=== PATIENT | female | born 1975 | race African-American/Black ===

== ENCOUNTER 2017-03-31 20:28 | Inpatient (IN) | payer OTHER ==
[~2017-03-31] VITALS: Ht 175.3 cm; Wt 96.5 kg
[~2017-03-31 20:28] MED LIST: CHOL50008 PO; CLON.5 PO; CYMB60CA PO; HUMALOG SQ; LABE200T2 PO; LIPI40TA PO; LISI-593 PO; METH1CHW2 PO; NOVOLOGMXP SQ; PERC5TAB12 PO; PLAV75TA29 PO; POTA10CA PO; TOPA100T11 PO; TRAD5TAB PO
[2017-03-31] MEDS ORDERED: CEFEPIME INJ 2,000 MG in SODIUM CHLORIDE 0.9% INJ 100 ML IV STA (20:38)
[2017-03-31 20:40] VITALS: BP 111/58; PULSE 96; RESP 18; TEMP 98.9; O2SAT 98
[2017-03-31] MEDS ORDERED: LORazepam 2 MG/ML VIAL IV PUSH ONE (20:45)
[2017-03-31] MEDS ORDERED: MORPHINE SULFATE 8 MG/ML INJ IV PUSH ONE (20:45)
[2017-03-31] MEDS ORDERED: SODIUM CHLOR 0.9% 1000 ML INJ 1,000 ML IV SCH ×4 (20:45→22:15)
[2017-03-31] MEDS ORDERED: ACETAMINOPHEN 500 MG CPLT PO ONE (20:45)
--- NOTE | 2017-03-31 21:25 | PD ---
HPI Chief Complaint: Abdominal Pain Time Seen by Provider: 20:30 Travel History International Travel<30 days: No Contact w/Intl Traveler<30days: No Traveled to known affect area: No History of Present Illness HPI This is a 41-year-old female who has a history of a stroke who presents to the emergency department with abdominal discomfort that's been going on for 2 days, described as all over, mild, associated with fever and one episode of vomiting yesterday. They did blood work at her care home and found her to have a white blood cell count and 10% bandemia. They placed a Perez catheter which she didn't have prior to today because they told her she had a urinary tract infection and they transferred her to the hospital. PFSH Past Medical History Blood Disorders: No Heart Rhythm Problems: No Cancer: No Cardiovascular Problems: Yes (HTN) High Cholesterol: Yes Chemotherapy: No Chest Pain: No Congestive Heart Failure: No Cerebrovascular Accident: Yes Diabetes: Yes Patient Takes Glucophage: No Endocrine: Yes Hypertension: Yes Immune Disorder: No Musculoskeletal: No Neurologic: Yes (CVA hx) Psychiatric: No Reproductive: No Respiratory: No Radiation Therapy: No Sleep Apnea: Yes Thyroid Disease: No ?: Not Past Surgical History Cholecystectomy: Yes Other Surgery: Yes (cholecystectomy, dental sx) Social History Alcohol Use: Yes (a drink at lunch) Tobacco Use: No Substance Use: No Allergies-Medications (Allergen,Severity, Reaction): Coded Allergies: No Known Allergies (Unverified , 08/29/16) Reported Meds & Prescriptions Reported Meds & Active Scripts Active Reported Zestril (Lisinopril) 40 Mg Tab 40 Mg PO DAILY Vitamin D3 (Cholecalciferol) 5,000 Unit Tab 5,000 Units PO DAILY Labetalol (Labetalol HCl) 200 Mg Tab 200 Mg PO BID Tradjenta (Linagliptin) 5 Mg Tab 5 Mg PO BID Topamax (Topiramate) 100 Mg Tab 100 Mg PO BID Methylphenidate (Methylphenidate HCl) 5 Mg Chew 5 Mg PO DAILY Potassium Chloride ER (Potassium Chloride) 10 Meq Cap 10 Meq PO DAILY Plavix (Clopidogrel Bisulfate) 75 Mg Tab 75 Mg PO DAILY Percocet (Oxycodone-Acetaminophen) 5-325 mg Tab 1 Tab PO Q4H PRN Lipitor (Atorvastatin Calcium) 40 Mg Tab 40 Mg PO HS Klonopin (Clonazepam) 0.5 Mg Tab 0.5 Mg PO BID Novolog Mix 70-30 Inj (Insulin Aspart Prota 70%/Aspart 30%) 1,000 Unit/10 Ml Vial 15 Units SQ DAILY IN THE PM Novolog Mix 70-30 Inj (Insulin Aspart Prota 70%/Aspart 30%) 1,000 Unit/10 Ml Vial 30 Units SQ DAILY IN THE AM Humalog Inj (Insulin Human Lispro) 1,000 Unit/10 Ml Vial 3-15 Units SQ ACHS IF 0-60=0 UNITS-FOLLOW HYPOGLYCEMIC PROTOCOL, 61-150=0 UNITS,151-200=3 UNITS, 201-250=5 UNITS, 251-300=8 UNITS, 301-350=10 UNITS, 351-400=12 UNITS, 401+=15 UNITS AND CALL MD Angelina NGUYEN (Duloxetine HCl) 60 Mg Capdr 60 Mg PO BID Review of Systems Except as stated in HPI: all other systems reviewed are Neg Physical Exam Narrative GENERAL: Morbidly obese, uncomfortable appearing SKIN: Focused skin assessment warm and dry. HEAD: Atraumatic. Normocephalic. EYES: Pupils equal and round. No injection or drainage. ENT: Moist mucous membranes NECK: Trachea midline. CARDIOVASCULAR: Regular rate and rhythm. No murmur appreciated. RESPIRATORY: Clear to auscultation. Breath sounds equal bilaterally. GASTROINTESTINAL: Abdomen soft, mildly diffusely tender, worse in the epigastrium. MUSCULOSKELETAL: No obvious deformities. NEUROLOGICAL: Awake and alert. No obvious cranial nerve deficits. 3 out of 5 strength in the left upper extremity with 4 out of 5 strength in the left lower extremity. PSYCHIATRIC: Appropriate mood and affect; insight and judgment normal. Data Data Last Documented VS Vital Signs Date Time Temp Pulse Resp B/P Pulse Ox O2 Delivery O2 Flow Rate FiO2 03/31/17 22:50 85 22 107/55 99 Room Air 03/31/17 20:40 98.9 Orders Complete Blood Count With Diff (03/31/17 20:38) Comprehensive Metabolic Panel (03/31/17 20:38) Lactic Acid Sepsis Protocol (03/31/17 20:38) Urinalysis - C+S If Indicated (03/31/17 20:38) Blood Culture (03/31/17 20:38) Chest, Single Ap (03/31/17 20:38) Blood Glucose (03/31/17 20:38) Ecg Monitoring (03/31/17 20:38) Iv Access Insert/Monitor (03/31/17 20:38) Oximetry (03/31/17 20:38) Oxygen Administration (03/31/17 20:38) Cefepime Inj (Maxipime Inj) (03/31/17 20:38) Sodium Chlor 0.9% 1000 Ml Inj (Ns 1000 M (03/31/17 20:45) Sodium Chlor 0.9% 1000 Ml Inj (Ns 1000 M (03/31/17 20:45) Acetaminophen (Tylenol) (03/31/17 20:45) Morphine Inj (Morphine Inj) (03/31/17 20:45) Lorazepam Inj (Ativan Inj) (03/31/17 20:45) Sodium Chlor 0.9% 1000 Ml Inj (Ns 1000 M (03/31/17 22:15) Sodium Chlor 0.9% 1000 Ml Inj (Ns 1000 M (03/31/17 22:15) Vancomycin Inj (Vancomycin Inj) (03/31/17 22:15) Urine Culture (03/31/17 21:05) Ct Abd/Pel W/O Iv Contrast (03/31/17 ) Sodium Chlorid 0.9% 500 Ml Inj (Ns 500 M (03/31/17 22:45) Admit Order (Ed Use Only) (03/31/17 23:09) Admit To Inpatient (03/31/17 ) Vital Signs (Adult) Q4H (03/31/17 23:09) Activity Oob With Assistance (03/31/17 23:09) Pullman Car Clerk / Telemetry .CONTINUOUS (03/31/17 23:09) Diet Heart Healthy (04/01/17 Breakfast) Sodium Chloride 0.9% Flush (Ns Flush) (03/31/17 23:15) Sodium Chloride 0.9% Flush (Ns Flush) (04/01/17 09:00) Basic Metabolic Panel (Bmp) (04/01/17 06:00) Complete Blood Count With Diff (04/01/17 06:00) Case Management Consult (03/31/17 23:09) Naloxone Inj (Narcan Inj) (03/31/17 23:15) Inpatient Certification (03/31/17 ) Labs Laboratory Tests Test 03/31/17 21:05 White Blood Count 36.4 TH/MM3 Red Blood Count 3.92 MIL/MM3 Hemoglobin 10.2 GM/DL Hematocrit 31.1 % Mean Corpuscular Volume 79.4 FL Mean Corpuscular Hemoglobin 26.0 PG Mean Corpuscular Hemoglobin 32.8 % Concent Red Cell Distribution Width 16.3 % Platelet Count 393 TH/MM3 Mean Platelet Volume 9.0 FL Neutrophils (%) (Auto) 89.0 % Lymphocytes (%) (Auto) 5.4 % Monocytes (%) (Auto) 4.7 % Eosinophils (%) (Auto) 0.5 % Basophils (%) (Auto) 0.4 % Neutrophils # (Auto) 32.3 TH/MM3 Lymphocytes # (Auto) 2.0 TH/MM3 Monocytes # (Auto) 1.7 TH/MM3 Eosinophils # (Auto) 0.2 TH/MM3 Basophils # (Auto) 0.2 TH/MM3 CBC Comment AUTO DIFF Differential Total Cells 100 Counted Neutrophils % (Manual) 89 % Band Neutrophils % 6 % Lymphocytes % 3 % Monocytes % 2 % Neutrophils # (Manual) 34.6 TH/MM3 Differential Comment FINAL DIFF MANUAL Platelet Estimate NORMAL Platelet Morphology Comment NORMAL Red Cell Morphology Comment NORMAL Urine Color YELLOW Urine Turbidity HAZY Urine pH 5.5 Urine Specific [place] 1.017 Urine Protein 100 mg/dL Urine Glucose (UA) NEG mg/dL Urine Ketones NEG mg/dL Urine Occult Blood SMALL Urine Nitrite NEG Urine Bilirubin NEG Urine Urobilinogen LESS THAN 2.0 MG/DL Urine Leukocyte Esterase LARGE Urine RBC 5 /hpf Urine WBC 97 /hpf Urine Squamous Epithelial 1 /hpf Cells Urine Bacteria MANY /hpf Urine Mucus FEW /lpf Microscopic Urinalysis Comment CATH-CULTURE IND Sodium Level 135 MEQ/L Potassium Level 3.4 MEQ/L Chloride Level 103 MEQ/L Carbon Dioxide Level 21.7 MEQ/L Anion Gap 10 MEQ/L Blood Urea Nitrogen 26 MG/DL Creatinine 1.77 MG/DL Estimat Glomerular Filtration 38 ML/MIN Rate Random Glucose 153 MG/DL Lactic Acid Level 1.4 mmol/L Calcium Level 8.8 MG/DL Total Bilirubin 0.5 MG/DL Aspartate Amino Transf 8 U/L (AST/SGOT) Alanine Aminotransferase 15 U/L (ALT/SGPT) Alkaline Phosphatase 112 U/L Total Protein 7.6 GM/DL Albumin 2.3 GM/DL [facility] Medical Decision Making Medical Screen Exam Complete: Yes Emergency Medical Condition: Yes Interpretation(s) Afebrile, mild tachycardia, hypotensive Leukocytosis of 36 89% neutrophils Creatinine is 1.7 Lactic acid is 1.4 Urinalysis: Urinary tract infection Differential Diagnosis Urinary tract infection, cholecystitis, appendicitis, diverticulitis, colitis Narrative Course This is a 41-year-old female who has a history of a stroke who presents to the emergency department with fever from her care home. She had blood work drawn there which demonstrated a white blood cell count in the 30s and she had a 10% bandemia. Here in the emergency department she is placed on a monitor and an IV was established. She is found have a low blood pressure with a map between 60-65. She was given 4 L of IV fluid as she is 150 kg. She was given vancomycin and cefepime. Labs here confirm a leukocytosis, urinary tract infection and acute kidney injury. Her blood pressure was on the low side with amount between 65 and 70. We agreed to admit the patient to the intensive care unit for close monitoring. CT was also done which demonstrates a small ureteral stone with some hydronephrosis. Critical Care Narrative Aggregate critical care time was 35 minutes. Time to perform other separately billable procedures was not included in the critical care time. My time did not include minutes spent treating any other patients simultaneously or on activities that did not directly contribute to the patient's treatment. The services I provided to this patient were to treat and/or prevent clinically significant deterioration that could result in: Disability, I provided critical care services requiring my management, as noted below: Chart data review, documentation time, medication orders and management, vital sign assessments/reviewing monitor data, ordering and reviewing lab tests, ordering and interpreting/reviewing x-rays and diagnostic studies, care of the patient and discussion of the patient with the admitting physicians. Physician Communication Physician Communication Discussed with Dr. Chan Diagnosis Primary Impression: Severe sepsis Admitting Information Admitting Physician Requests: it Cary Mchugh MD Mar 31, 2017 21:24
[2017-03-31 21:42] LABS: AUTOMATED NEUTROPHIL # 32.3 TH/MM3 (1.8-7.7); BASOPHIL # 0.2 TH/MM3 (0-0.2); BASOPHIL % 0.4 % (0.0-2.0); EOSINOPHIL # 0.2 TH/MM3 (0-0.4); EOSINOPHIL % 0.5 % (0.0-4.0); HEMATOCRIT 31.1 % (35.0-46.0); LYMPH % 5.4 % (9.0-44.0); MEAN CELL VOLUME 79.4 FL (80.0-100.0); MEAN CORPUSCULAR HGB CONC 32.8 % (32.0-36.0); MONO % 4.7 % (0.0-8.0); PLATELET COUNT 393 TH/MM3 (150-450); RED BLOOD COUNT 3.92 MIL/MM3 (4.00-5.30); RED CELL DISTRIBUTION WIDTH 16.3 % (11.6-17.2); WHITE BLOOD COUNT 36.4 TH/MM3 (4.0-11.0)
[2017-03-31 21:44] LABS: HEMO FLAGS AUTO DIFF
--- NOTE | 2017-03-31 21:50 | RADRPT ---
EXAM DATE/TIME: 03/31/2017 21:19 [facility] COMPARISON: CHEST SINGLE AP, August 29, 2016, 17:05. INDICATIONS : Patient is short of breath and has had a fever for three days. MEDICAL HISTORY : Diabetes mellitus type II. Hypertension SURGICAL HISTORY : None. ENCOUNTER: Initial ACUITY: 1 day PAIN SCORE: 0/10 LOCATION: Bilateral chest FINDINGS: The lungs are clear without infiltrate, nodule, or mass. There is no appreciable pleural effusion fo r technique. Heart and mediastinum are unremarkable. CONCLUSION: No acute cardiopulmonary disease. Irene Nguyen MD on March 31, 2017 at 21:48 Board Certified Radiologist. This report was verified electronically.
[2017-03-31 22:02] LABS: ALT (GPT) 15 U/L (10-53); ANION GAP 10 MEQ/L (5-15); AST (GOT) 8 U/L (15-37); BICARBONATE 21.7 MEQ/L (21.0-32.0); BLOOD UREA NITROGEN 26 MG/DL (7-18); CHLORIDE 103 MEQ/L (98-107); GLOMERULAR FILTRATION RATE 38 ML/MIN (>89); POTASSIUM 3.4 MEQ/L (3.5-5.1); SODIUM (NA) 135 MEQ/L (136-145)
[2017-03-31 22:05] LABS: ALKALINE PHOSPHATASE 112 U/L (45-117); TOTAL BILIRUBIN ADULT 0.5 MG/DL (0.2-1.0)
[2017-03-31 22:10] VITALS: BP 87/56; PULSE 73; RESP 18; O2SAT 97
[2017-03-31] MEDS ORDERED: VANCOMYCIN INJ 1,500 MG in SODIUM CHLORID 0.9% 500 ML INJ 500 ML IV ONE (22:15)
[2017-03-31 22:19] LABS: BACTERIA, URINE MANY /hpf; BLOOD, URINE SMALL (NEG); GLUCOSE,URINE NEG (NEG); KETONE, URINE NEG (NEG); MUCUS URINE FEW /lpf (OCC); NITRITE,URINE NEG (NEG); PH, URINE 5.5 (5.0-8.5); SQUAMOUS EPITHELIAL CELL URINE 1 /hpf (0-5); URINE COLOR YELLOW (YELLW/STRAW)
[2017-03-31 22:21] LABS: COMMENT (UR) CATH-CULTURE IND; CULTURE IF INDICATED CATH CULTURE IND
[2017-03-31 22:25] LABS: BANDS 6 % (0-6); NEUTROPHIL # MANUAL DIFF 34.6 TH/MM3 (1.8-7.7); PLATELET ESTIMATE SMEAR NORMAL (NORMAL); PLATELET MORPHOLOGY NORMAL (NORMAL); POLYS (SEG NEUTROPHILS) 89 % (16-70); SCAN/DIFF FINAL DIFF MANUAL; WBC DIFF SAMPLE 100
[2017-03-31 22:30] VITALS: BP 89/62; PULSE 82; RESP 22; O2SAT 98
[2017-03-31] MEDS ORDERED: SODIUM CHLORID 0.9% 500 ML INJ 500 ML IV ONE (22:45)
[2017-03-31 22:50] VITALS: BP 107/55; PULSE 85; RESP 22; O2SAT 99
[2017-03-31] MEDS ORDERED: Vancomycin Consult Pharmacy 1 EA OTHER SCH (23:15)
[2017-03-31] MEDS ORDERED: NALOXONE HCL 0.4 MG/ML AMP IV PRN (23:15)
[2017-03-31] MEDS ORDERED: SODIUM CHLORIDE 0.9% FLUSH 10 ML FLUSH IV FLUSH PRN (23:15)
[2017-03-31 23:36] VITALS: BP 117/57; PULSE 89; RESP 25; O2SAT 98
[2017-04-01] VITALS (29 sets, daily range): BP systolic 125–174; BP diastolic 60–104; PULSE 90–104; RESP 19–31; TEMP 97.6–99.4; O2SAT 95–100
--- NOTE | 2017-04-01 00:08 | RADRPT ---
EXAM DATE/TIME: 03/31/2017 23:48 [facility] COMPARISON: No previous studies available for comparison. INDICATIONS : Diffuse abdominal pain. ORAL CONTRAST: No oral contrast ingested. RADIATION DOSE: 26.39 CTDIvol (mGy) ; Patient body habitus MEDICAL HISTORY : Hypertension. Diabetes. SURGICAL HISTORY : Cholecystectomy. ENCOUNTER: Initial ACUITY: 2 days PAIN SCALE: 6/10 LOCATION: All quadrants. TECHNIQUE: Volumetric scanning of the abdomen and pelvis was performed. Using automated exposure control and ad justment of the mA and/or kV according to patient size, radiation dose was kept as low as reasonably achievable to obtain optimal diagnostic quality images. DICOM format image data is available electro nically for review and comparison. FINDINGS: Cholecystectomy clips are noted. Liver, spleen, pancreas, adrenal glands are unremarkable. Left upper pole nonobstructing calculus measuring 7.7 mm. Right midpole nonobstructing renal calculus measuring 3.8 mm. Right upper pole renal calculus measuring 4 mm and an adjacent 4 mm calculus. There is no ev idence of obstructing renal calculus however there is mild hydronephrosis bilaterally and mild hydrou reter. Perez catheter is noted within the urinary bladder which is decompressed. The within the dista l left ureter a 3.8 mm calculus is present. On the right, there is no evidence for ureteral calculus. A fibroid uterus is noted with a globular configuration. The ovaries are not clearly visualized. The re are is an increased number of subcentimeter nodes in the retroperitoneum, and there is mild perine phric stranding identified. There is no evidence of aneurysm. Appendix is normal. The lung bases are clear. Osseous structures are intact. CONCLUSION: 1. Mild hydronephrosis and hydroureter bilaterally with a left distal ureteral stone present. There i s mild perinephric stranding. 2. Prominent globular configuration of the uterus with multiple calcifications consistent with a fibr oid uterus. Mickey Harris MD on April 01, 2017 at 0:02 Board Certified Radiologist. This report was verified electronically.
--- NOTE | 2017-04-01 00:14 | HHI.HP ---
HPI Service [facility] Phys[facility] Esteban Tesfaye MD Admission Diagnosis severe sepsis Diagnoses: Travel History International Travel<30 Days: No Contact w/Intl Traveler <30 Da: No Traveled to Known Affected Are: No History of Present Illness History from patient, ER physician communication, and review of medical records , and [facility] notes. Patient reported that she was sent from the [facility] because she was not able to eat. She reports she was having trouble eating for the past 2 or 3 days because she was having loss of appetite. Also reports of associated nausea. Reports she vomited about once a day for the past 2-3 days. Denies any black color or red color vomit. Also reports of diffuse abdominal pain. States she was having diarrhea about once a day for the past 2-3 days as well. No black or red color diarrhea. Reports of urinary burning, pain on urination, frequent urination. She states she is bedbound at the [facility]. She however does not have a Perez catheter chronically according to her. She states that the catheter was placed today just to collect sample at the [facility]. She denies having had any bedsores as well. However we were unable to check her skin integrity in emergency room so far because of her body habitus and not able to roll her over on the bed. Patient denies being on any antibiotics recently. Her last hospitalization was in August 2016 at our facility. Stated she did not go to any other hospitals. Apart from the above, patient denies any recent chest pain/palpitations/ shortness of breath/focal weakness which is new. Denies any hematemesis/hematochezia/melena/hematuria. The emergency room, patient was noted to be quite hypotensive upon initial arrival. She was given 4 L total fluids for resuscitation. At present, her blood pressure is 126/70. Heart rate around 90. She was also given vancomycin, cefepime in ER Review of Systems Except as stated in HPI: all other systems reviewed are Neg Past Family Social History Past Medical History htn dm sleep apnea cva x2 seizures morbid obesity Past Surgical History cholecystectomy Reported Medications Medications list from the [facility] reviewed Allergies: Coded Allergies: No Known Allergies (Unverified , 08/29/16) Family History Reports her father had colon cancer and from it. First diagnosis was at the age of 56. Social History Denies smoking/alcohol abuse/drug abuse. senior care patient, morbidly obese, bed bound due to prior CVA. Physical Exam Vital Signs Vital Signs Date Time Temp Pulse Resp B/P Pulse Ox O2 Delivery O2 Flow Rate FiO2 03/31/17 23:36 89 25 117/57 98 Room Air 03/31/17 22:50 85 22 107/55 99 Room Air 03/31/17 22:30 82 22 89/62 98 Room Air 03/31/17 22:10 73 18 87/56 97 Room Air 03/31/17 20:44 17 03/31/17 20:40 98.9 96 18 111/58 98 Physical Exam GENERAL: This is a well-nourished, well-developed patient, in no apparent distress. Morbid obesity. Flat affect. SKIN: No rashes, ecchymoses or lesions. Cool and dry. HEAD: Atraumatic. Normocephalic. No temporal or scalp tenderness. EYES: No scleral icterus. No injection or drainage. ENT: Nose without bleeding, purulent drainage or septal hematoma. Airway patent. NECK: Trachea midline. No JVD CARDIOVASCULAR: Regular rate and rhythm without murmurs, gallops, or rubs. RESPIRATORY: Decreased air entry bilaterally. Poor exam due to body habitus GASTROINTESTINAL: Abdomen soft, non-tender, nondistended. . No guarding. MUSCULOSKELETAL: Extremities without clubbing, cyanosis. No calf tenderness NEUROLOGICAL: Awake and alert. upper extremity 5 out of 5 bilaterally. Inability to move lower extremities due to body habitus and prior CVA.. Normal speech. Laboratory Laboratory Tests Test 03/31/17 21:05 White Blood Count 36.4 Red Blood Count 3.92 Hemoglobin 10.2 Hematocrit 31.1 Mean Corpuscular Volume 79.4 Mean Corpuscular Hemoglobin 26.0 Mean Corpuscular Hemoglobin 32.8 Concent Red Cell Distribution Width 16.3 Platelet Count 393 Mean Platelet Volume 9.0 Neutrophils (%) (Auto) 89.0 Lymphocytes (%) (Auto) 5.4 Monocytes (%) (Auto) 4.7 Eosinophils (%) (Auto) 0.5 Basophils (%) (Auto) 0.4 Neutrophils # (Auto) 32.3 Lymphocytes # (Auto) 2.0 Monocytes # (Auto) 1.7 Eosinophils # (Auto) 0.2 Basophils # (Auto) 0.2 CBC Comment AUTO DIFF Differential Total Cells 100 Counted Neutrophils % (Manual) 89 Band Neutrophils % 6 Lymphocytes % 3 Monocytes % 2 Neutrophils # (Manual) 34.6 Differential Comment FINAL DIFF MANUAL Platelet Estimate NORMAL Platelet Morphology Comment NORMAL Red Cell Morphology Comment NORMAL Urine Color YELLOW Urine Turbidity HAZY Urine pH 5.5 Urine Specific [place] 1.017 Urine Protein 100 Urine Glucose (UA) NEG Urine Ketones NEG Urine Occult Blood SMALL Urine Nitrite NEG Urine Bilirubin NEG Urine Urobilinogen LESS THAN 2.0 Urine Leukocyte Esterase LARGE Urine RBC 5 Urine WBC 97 Urine Squamous Epithelial 1 Cells Urine Bacteria MANY Urine Mucus FEW Microscopic Urinalysis Comment CATH-CULTURE IND Sodium Level 135 Potassium Level 3.4 Chloride Level 103 Carbon Dioxide Level 21.7 Anion Gap 10 Blood Urea Nitrogen 26 Creatinine 1.77 Estimat Glomerular Filtration 38 Rate Random Glucose 153 Lactic Acid Level 1.4 Calcium Level 8.8 Total Bilirubin 0.5 Aspartate Amino Transf 8 (AST/SGOT) Alanine Aminotransferase 15 (ALT/SGPT) Alkaline Phosphatase 112 Total Protein 7.6 Albumin 2.3 Date/Time Procedure Status Source Growth 03/31/17 21:05 Urine Culture Received Urine Catheterized Urine Pending 03/31/17 21:05 Aerobic Blood Culture Received Blood Peripheral Pending 03/31/17 21:05 Anaerobic Blood Culture Received Blood Peripheral Pending Result Diagram: 03/31/17210403/31/172104 Imaging Last 48 hours Impressions Chest X-Ray 03/31/172037 Signed Impressions: Service Date/Time: March 21:19 - CONCLUSION: No acute cardiopulmonary disease. Irene Nguyen MD Abdomen/Pelvis CT 03/31/17 0000 Signed Impressions: Service Date/Time: March 23:48 - CONCLUSION: 1. Mild hydronephrosis and hydroureter bilaterally with a left distal ureteral stone present. There is mild perinephric stranding. 2. Prominent globular configuration of the uterus with multiple calcifications consistent with a fibroid uterus. Mickey Harris MD Assessment and Plan Assessment and Plan Impression: Severe sepsissource likely UTI. Nausea/vomiting/diarrheaper patient's. However all new once a day episodes. CT abdomen and pelvis personally reviewed. No evidence of cholelithiasis/ pancreatitis/diverticulitis. Mild bilateral hydronephrosis with hydroureter and left distal ureteral stone. Leukocytosis with left shift Acute renal failure Hypokalemia Hypertension Diabetes Obstructive sleep apnea History of CVA 2 Seizure disorder Morbid obesity Bedbound status Plan: Aggressive fluid resuscitation. Patient received 4 L normal saline bolus in ER. At present, Blood pressure is stable. Not tachycardic. We'll continue to monitor. We'll dose vancomycin per creatinine clearance and levels. Cefepime 2 g IV every 12 hours. Adjust per creatinine clearance. Add Cipro 400 mg IV every 12 hours. We'll follow culture results. However, given that her leukocytosis is quite significant at 36,000, and that she is a [facility] patient, with complaint of nausea/vomiting/diarrhea, question whether she has C. difficile colitis. We'll send stool for C. difficile once patient makes bowel movements. Also will check for decubitus ulcers. We were unable to see so in ER because of patient's morbid obesity and stretchers status. We'll check once patient arrives ICU. Please note that patient has a Perez catheter that was placed at [facility] on March 31, 2017. Have written an order to discontinue Perez catheter by April 01, 2017 a.m. IV hydration with normal saline at 84 cc per hour. We'll follow renal function indices. replace kcl [id number] po one dose now Orders have been written to obtain med reconciliation. Would continue home medications once this is done. DVT prophylaxison heparin. GI prophylaxison pantoprazole. Discussed Condition With patient.ER MD, nursing staff Physician Certification 2 Midnight Certification Type: Admission for Inpatient Services Order for Inpatient Services The services are ordered in accordance with Medicare regulations or non- Medicare payer requirements, as applicable. In the case of services not specified as inpatient-only, they are appropriately provided as inpatient services in accordance with the 2-midnight benchmark. Estimated LOS (days): 3 days is the estimated time the patient will need to remain in the hospital, assuming treatment plan goals are met and no additional complications. Post-Hospital Plan: [facility] Iris Chan MD Apr 01, 2017 00:14
[2017-04-01] MEDS ORDERED: VANCOMYCIN 1,000 MG/NS 250 ML IV ONE ×2 (01:00)
[2017-04-01] MEDS ORDERED: CHLORHEXIDINE GLUCONATE 2 % 1 PACK (2 CLOTHS) TOP PRN (01:00)
[2017-04-01] MEDS ORDERED: GLUCAGON 1 MG/ML VIAL OTHER PRN (01:00)
[2017-04-01] MEDS ORDERED: MISCELLANEOUS NURSING INFORMATION XX SCH (01:00)
[2017-04-01] MEDS ORDERED: DEXTROSE 50% IN WATER 50 ML VIAL(D50) IV PRN (01:00)
[2017-04-01] MEDS ORDERED: POTASSIUM CHLORIDE 25 MEQ EFFERVESCENT TAB PO ONE (01:15)
[2017-04-01] MEDS: CIPROFLOXACIN 400 MG PREMIX 200 ML IV SCH ×2 (01:35→12:33)
[2017-04-01] MEDS: SODIUM CHLOR 0.9% 1000 ML INJ 1,000 ML IV SCH ×3 (01:37→22:02)
[2017-04-01] MEDS: CHLORHEXIDINE GLUCONATE 2 % 1 PACK (2 CLOTHS) TOP SCH ×2 (01:38→22:02)
[2017-04-01 05:28] LABS: HEMO FLAGS AUTO DIFF; MEAN CELL VOLUME 80.2 FL (80.0-100.0); MEAN CORPUSCULAR HEMOGLOBIN 24.9 PG (27.0-34.0); PLATELET COUNT 371 TH/MM3 (150-450); RED BLOOD COUNT 3.86 MIL/MM3 (4.00-5.30); RED CELL DISTRIBUTION WIDTH 17.1 % (11.6-17.2)
[2017-04-01 05:49] LABS: BICARBONATE 17.8 MEQ/L (21.0-32.0); POTASSIUM 3.5 MEQ/L (3.5-5.1)
[2017-04-01 06:35] LABS: BANDS 1 % (0-6); NEUTROPHIL # MANUAL DIFF 28.5 TH/MM3 (1.8-7.7); POLYS (SEG NEUTROPHILS) 91 % (16-70); WBC DIFF SAMPLE 100
[2017-04-01 06:38] LABS: BURR CELLS 1+ (NORMAL); HYPERSEGMENTED POLYS 1+ (NORMAL); PLATELET ESTIMATE SMEAR NORMAL (NORMAL); PLATELET MORPHOLOGY NORMAL (NORMAL)
[2017-04-01 06:40] LABS: SCAN/DIFF FINAL DIFF MANUAL
[2017-04-01] MEDS: HEPARIN SODIUM - SQ 10,000 UNITS/ML VIAL SQ SCH ×3 (06:57→22:00)
[2017-04-01] MEDS: INSULIN ASPART SUPPLEMENTAL SCALE SQ SCH ×4 (06:57→21:00)
[2017-04-01] MEDS: PANTOPRAZOLE SOD 40 MG DELAYED RELEASE TAB PO SCH (08:59)
[2017-04-01] MEDS: SODIUM CHLORIDE 0.9% FLUSH 10 ML FLUSH IV FLUSH SCH ×2 (09:00→21:58)
[2017-04-01] MEDS ORDERED: CEFEPIME INJ 2,000 MG in SODIUM CHLORIDE 0.9% INJ 100 ML IV SCH (09:00)
--- NOTE | 2017-04-01 11:14 | HHI.PR ---
Subjective Remarks Follow-up for sepsis No overnight events, no fever, blood pressure in the 120s stable. Probably hypotensive because of rhonchi and of cough which patient adjusts herself. Patient verbalized that she is depressed, feels sad, sometimes breaks into tears. Patient complains of right lower quadrant pain, vague description, nonradiating. Objective Vitals Vital Signs Date Time Temp Pulse Resp B/P Pulse Ox O2 Delivery O2 Flow Rate FiO2 04/01/17 06:00 90 04/01/17 04:00 92 04/01/17 04:00 98.7 94 28 128/78 100 04/01/17 02:00 92 04/01/17 00:55 97.6 92 24 125/86 100 04/01/17 00:27 90 22 126/60 95 Room Air 03/31/17 23:36 89 25 117/57 98 Room Air 03/31/17 22:50 85 22 107/55 99 Room Air 03/31/17 22:30 82 22 89/62 98 Room Air 03/31/17 22:10 73 18 87/56 97 Room Air 03/31/17 20:44 17 03/31/17 20:40 98.9 96 18 111/58 98 I/O 03/31/17 03/31/17 03/31/17 04/01/17 04/01/17 04/01/17 07:00 15:00 23:00 07:00 15:00 23:00 Intake Total 1295 ml Output Total 1750 ml Balance -455 ml Intake Oral 240 ml IV Total 1055 ml Output Urine Total 1750 ml Stool Total 0 ml Result Diagram: 04/01/1740104/01/17401 Imaging Last Impressions Chest X-Ray 03/31/172037 Signed Impressions: Service Date/Time: March 21:19 - CONCLUSION: No acute cardiopulmonary disease. Irene Nguyen MD Abdomen/Pelvis CT 03/31/17 0000 Signed Impressions: Service Date/Time: March 23:48 - CONCLUSION: 1. Mild hydronephrosis and hydroureter bilaterally with a left distal ureteral stone present. There is mild perinephric stranding. 2. Prominent globular configuration of the uterus with multiple calcifications consistent with a fibroid uterus. Mickey Harris MD Objective Remarks GENERAL: Not in distress. Morbid obesity. Flat affect. SKIN: No rashes, ecchymoses or lesions. Cool and dry. NECK: Trachea midline. No JVD CARDIOVASCULAR: Regular rate and rhythm without murmurs, gallops, or rubs. RESPIRATORY: Decreased air entry bilaterally. Poor exam due to body habitus GASTROINTESTINAL: Abdomen soft, nontender at all, nondistended. . No guarding. MUSCULOSKELETAL: Extremities without clubbing, cyanosis. No calf tenderness NEUROLOGICAL: Awake and alert, oriented 3. Positive for generalized weakness especially in the left but patient seems to be not giving any effort A/P Assessment and Plan Severe sepsis secondary to pyelonephritis -Urine culture pending, stop vancomycin, start ciprofloxacin, await urine culture. Hypotension is better, continue IVF. CT scan showed perinephric standing. There is also ureteral stone, consult urology. Recheck CBC tomorrow. Blood culture positive for gram-negative rods, continue cefepime, repeat blood culture Nausea/vomiting/diarrheaper patient's. He says while in the hospital. CT scan of the abdomen revealed hydronephrosis and hydroureter with left distal ureteral stone with perinephric stranding. Zofran as needed. Fibroids-CT scan a CAT scan, follow-up as outpatient Acute renal failure-better, recheck BMP tomorrow, continue IVF Hypokalemia-resolved Depression-consult psychiatry, resume Cymbalta, hold off Klonopin for now and methylphenidate. History of CVA-restart statin and Plavix Poor oral intake-could be secondary to depression, question yakelin Forte, consult psychiatry. Add boost. Hypertension-hold lisinopril, restart labetalol. Diabetes-sliding scale insulin for now, hold off long-acting insulin since patient is not eating. seizures-restart Topamax DVT prophylaxison heparin. GI prophylaxison pantoprazole. Jono Caballero MD Apr 01, 2017 11:14
[2017-04-01] MEDS ORDERED: ONDANSETRON HCL 4 MG/2 ML VIAL IV PUSH PRN (13:15)
[2017-04-01] MEDS: TAMSULOSIN HCL 0.4 MG CAP PO SCH (13:21)
[2017-04-01] MEDS: LABETALOL HCL 200 MG TAB PO SCH ×2 (13:46→21:00)
[2017-04-01] MEDS: CLOPIDOGREL 75 MG TAB PO SCH (13:47)
[2017-04-01] MEDS: DULoxetine HCl DR 60 MG CAP PO SCH ×2 (13:47→21:00)
[2017-04-01] MEDS: TOPIRAMATE 100 MG TAB PO SCH ×2 (13:49→21:00)
[2017-04-01] MEDS ORDERED: VANCOMYCIN 1,500 MG/NS 500 ML IV SCH ×2 (14:00)
--- NOTE | 2017-04-01 15:00 | PD.PSY.CON ---
Provisional Diagnosis Admission Date Mar 31, 2017 at 23:11 Warren I. Adjustment disorder with depressed mood, history of depression Warren II. Deferred Warren III. Diabetes, UTI, urosepsis History of Present Illness Service Psychiatry Consult Requested By Primary Care Physician Esteban Tesfaye MD HPI The patient is a 41-year-old woman, domiciled in [place] [facility] home, single, on SSI, with psychiatric history of depression, anxiety, no previous suicidal attempts, 1 previous psychiatric hospitalizations, she is on Cymbalta 60 mg prescribed by visiting PCP, extensive medical history of diabetes, obesity, admitted in the hospital due to UTI, sepsis, hyponatremia JANELL. Consulted to psychiatry due to symptomatology of depression, poor oral intake, flat affect. On psychiatric evaluation patient reports depression, she seems to be distant, with a marked flat affect, seems to be internally preoccupied, minimally verbal, oddly Related, with a kind of concrete thought, black or white, monotonous for most of our questions. She denies suicidal and homicidal ideation, she denies visual and auditory hallucinations. Past Family Social History Coded Allergies: No Known Allergies (Unverified , 08/29/16) Active Scripts Mirtazapine 15 Mg Tab15 Mg PO HS #30 TAB Ref 0 Prov:Camelia Hernandez MD 04/08/17 Tamsulosin (Flomax)0.4 Mg Cap0.4 Mg PO DAILY #30 CAP Ref 0 Prov:Camelia Hernandez MD 04/08/17 Potassium Bicarb-Chloride Effervescent (Effervescent Potassium Chloride 25 Meq) 25 Meq Tab25 Meq NG Q12HR #30 TAB Ref 0 Prov:Camelia Hernandez MD 04/08/17 Oyster Shell (Calcium Oyster Shell)500 Mg Ksf170 Mg PO Q12HR #30 TAB Ref 0 Prov:Camelia Hernandez MD 04/08/17 Magnesium Oxide 241.3 Mg Kdt407 Mg PO Q12HR #60 TAB Ref 0 Prov:Camelia Hernandez MD 04/08/17 Levofloxacin (Levaquin)750 Mg Mfmoxh573 Mg PO DAILY #7 TAB Ref 0 Prov:Camelia Hernandez MD 04/08/17 Labetalol 200 Mg Kso751 Mg PO BID #60 TAB Ref 0 Prov:Camelia Hernandez MD 04/08/17 Hydralazine HCl 50 Mg Xissoo80 Mg PO Q8H #90 TAB Ref 0 Prov:Camelia Hernandez MD 04/08/17 Oxycodone-Acetaminophen (Percocet)5-325 mg Tab1 Tab PO Q4H PRN (PAIN) #10 TAB Ref 0 Prov:Camelia Hernandez MD 04/08/17 Reported Medications Linagliptin (Tradjenta)5 Mg Tab5 Mg PO DAILY #30 TAB Ref 0 04/05/17 Metformin 850 Mg Kzq949 Mg PO BIDPC Ref 0 With meals 04/05/17 Levetiracetam (Keppra)500 Mg Les660 Mg PO BID #60 TAB Ref 0 04/05/17 Clonidine 0.3 Mg Tab0.3 Mg PO TID #60 TAB Ref 0 04/05/17 Amlodipine 10 Mg Tab10 Mg PO DAILY #30 TAB Ref 0 04/05/17 Lisinopril (Zestril)40 Mg Tab40 Mg PO DAILY #30 TAB Ref 0 08/29/16 Cholecalciferol (Vitamin D3)5,000 Unit Tab5,000 Units PO DAILY #1 BOTTLE Ref 0 08/29/16 Topiramate (Topamax)100 Mg Axh789 Mg PO BID #60 TAB Ref 0 08/29/16 Clopidogrel (Plavix)75 Mg Tab75 Mg PO DAILY #30 TAB Ref 0 08/29/16 Atorvastatin (Lipitor)40 Mg Tab40 Mg PO HS #30 TAB Ref 0 08/29/[address] (Cymbalta DR)60 Mg Capdr60 Mg PO BID #30 CAP Ref 0 08/29/16 Discontinued Reported Medications Vilazodone (Viibryd)40 Mg Tab40 Mg PO DAILY #30 TAB Ref 0 04/05/17 Melatonin 3 Mg Tab9 Mg HS 04/05/17 Clonazepam (Klonopin)0.5 Mg Tab0.5 Mg PO BID #60 TAB Ref 0 04/05/17 Labetalol 200 Mg Gzv513 Mg PO BID Ref 0 08/29/16 Linagliptin (Tradjenta)5 Mg Tab5 Mg PO BID #30 TAB Ref 0 08/29/16 Methylphenidate 5 Mg Chew5 Mg PO DAILY 08/29/16 Potassium Chloride ER 10 Meq Cap10 Meq PO DAILY #30 CAP Ref 0 08/29/16 Oxycodone-Acetaminophen (Percocet)5-325 mg Tab1 Tab PO Q4H PRN (PAIN) Ref 0 08/29/16 Clonazepam (Klonopin)0.5 Mg Tab0.5 Mg PO BID #60 TAB Ref 0 08/29/16 Insulin Aspart Protam-Asp 70-30 Inj (Novolog Mix 70-30 Inj)1,000 Unit/10 Ml Vial15 Units SQ DAILY IN THE PM #10 ML Ref 0 08/29/16 Insulin Aspart Protam-Asp 70-30 Inj (Novolog Mix 70-30 Inj)1,000 Unit/10 Ml Vial30 Units SQ DAILY IN THE AM #10 ML Ref 0 08/29/16 Insulin Lispro (Human) Inj (Humalog Inj)1,000 Unit/10 Ml Vial3-15 Units SQ ACHS #1 VIAL Ref 0 IF 0-60=0 UNITS-FOLLOW HYPOGLYCEMIC PROTOCOL, 61-150=0 UNITS,151-200=3 UNITS, 201-250=5 UNITS, 251-300=8 UNITS, 301-350=10 UNITS, 351-400=12 UNITS, 401+=15 UNITS AND CALL 08/29/16 Current Medications Medications (Trade) Dose Ordered Sig/Moriah Route Start Time Stop Time Status Last Admin (NS Flush) 2 ml UNSCH PRN IV FLUSH 03/31/17 23:15 (NS Flush) 2 ml BID IV FLUSH 04/01/17 09:00 Naloxone HCl 0.4 mg 0.4 mg UNSCH PRN IV 03/31/17 23:15 (Cipro 400 Mg Premix) 200 ml @ 200 mls/hr Q12H IV 04/01/17 00:00 04/01/17 12:33 Miscellaneous Information 1 Q361D XX 04/01/17 01:00 (Chlorhexidine 2% Cloth) 3 pack Taper DAILY@04 TOP 04/01/17 04:00 03/28/18 03:59 04/01/17 01:38 (Chlorhexidine 2% Cloth) 3 pack UNSCH PRN TOP 04/01/17 01:00 (D50w (Vial) Inj) 50 ml UNSCH PRN IV 04/01/17 01:00 (Glucagon Inj) 1 mg UNSCH PRN OTHER 04/01/17 01:00 Heparin Sodium (Porcine) 5000 units 5,000 units Q8HR SQ 04/01/17 06:00 04/01/17 13:48 (NS 1000 ml Inj) 1,000 ml @ 100 mls/hr Q10H IV 04/01/17 01:15 04/01/17 13:53 (Protonix) 40 mg DAILY PO 04/01/17 09:00 04/01/17 08:59 Tamsulosin HCl 0.4 mg 0.4 mg DAILY PO 04/01/17 13:00 04/01/17 13:21 (Maxipime Inj/NS Inj) 100 ml @ 200 mls/hr Q12HR IV 04/01/17 21:00 (Lipitor) 40 mg HS PO 04/01/17 21:00 (Plavix) 75 mg DAILY PO 04/01/17 13:15 04/01/17 13:47 (Cymbalta Dr) 60 mg BID PO 04/01/17 13:15 04/01/17 13:47 (Trandate) 200 mg BID PO 04/01/17 13:15 04/01/17 13:46 (KCl) 10 meq DAILY PO 04/02/17 09:00 (Topamax) 100 mg BID PO 04/01/17 13:15 04/01/17 13:49 (Zofran Inj) 4 mg Q6HR PRN IV PUSH 04/01/17 13:15 Physical Exam Vital Signs Vital Signs Date Time Temp Pulse Resp B/P Pulse Ox O2 Delivery O2 Flow Rate FiO2 04/01/17 14:30 101 04/01/17 12:00 99.4 04/01/17 10:50 21 164/73 100 04/01/17 00:27 Room Air Mental Status Examination Appearance Overweight woman, [facility], younger than his stated age , superficially cooperative, she seems to be distant, hypoactive Speech: Hesitant, Slow Orientation: x3 Memory: Unremarkable Thought Process: Goal Directed, Linear, Other (concrete) Thought Content: Unremarkable Language Language seems to be limited Fund of Knowledge Seems to be limited, concrete Attention and Concentration: Good Suicidal Ideation: No Previous Suicide Attempts: No Homicidal Ideation: No Previous Homicide Attempts: No Judgment: WNL Affect: Sad Affect if Inappropriate: Flat Mood: Angry Assessment & Plan Problem List: (1) Adjustment disorder with depressed mood Assessment & Plan: The patient is a 41-year-old woman, domiciled in [place] [facility] home, single, on SSI, with psychiatric history of depression, anxiety, no previous suicidal attempts, 1 previous psychiatric hospitalizations, she is on Cymbalta 60 mg prescribed by visiting PCP, extensive medical history of diabetes, obesity, admitted in the hospital due to UTI, sepsis, hyponatremia JANELL. Consulted to psychiatry due to symptomatology of depression, poor oral intake, flat affect. On psychiatric evaluation patient reports depression, she seems to be distant, with a marked flat affect, seems to be internally preoccupied, minimally verbal, oddly Related, with a kind of concrete thought, black or white, monotonous for most of our questions. She denies suicidal and homicidal ideation, she denies visual and auditory hallucinations. Baseline isn't known. Collateral information not available at this moment. Patient does not meet criteria for involuntary psychiatric admission at this moment. We'll continue Cymbalta 60 mg, will add Remeron 15 mg to help with depression and poor appetite. Extensive support, motivation and psychoeducation provided. Case was discussed in detail with Dr. Caballero. We'll follow-up. In case of need over the weekend, the psychiatrist on-call is Dr. Tavera. Extension [phone]. ICD Code: F43.21 Assessment & Plan Estimated LOS: Oj Pickard MD Apr 01, 2017 15:00
[2017-04-01] MEDS: oxyCODONE/ACETAMINOPHEN 5 MG/325 MG TAB PO PRN (17:27)
[2017-04-01] MEDS: CEFEPIME INJ 2,000 MG in SODIUM CHLORIDE 0.9% INJ 100 ML IV SCH (21:00)
[2017-04-01] MEDS: MIRTAZAPINE 15 MG TAB PO SCH (21:00)
[2017-04-01] MEDS: ATORVASTATIN 40 MG TAB PO SCH (21:00)
[2017-04-02] VITALS (7 sets, daily range): BP systolic 134–200; BP diastolic 64–97; PULSE 96–111; RESP 17–28; TEMP 96.3–98.6; O2SAT 96–100
[2017-04-02] MEDS: CIPROFLOXACIN 400 MG PREMIX 200 ML IV SCH ×2 (00:50→11:40)
[2017-04-02] MEDS ORDERED: METOPROLOL TARTRATE 5 MG/5 ML VIAL IV PUSH ONE ×3 (01:30→04:45)
[2017-04-02] MEDS ORDERED: NIFEdipine 30 MG SUSTAINED RELEASE TAB PO ONE (03:00)
[2017-04-02] MEDS ORDERED: hydrALAZINE HCL 20 MG/ML VIAL IV PUSH ONE (04:45)
--- NOTE | 2017-04-02 04:47 | RADRPT ---
EXAM DATE/TIME: 04/02/2017 03:28 [facility] COMPARISON: CT ABDOMEN & PELVIS W/O CONTRAST, March 31, 2017, 23:48. INDICATIONS : Renal calculi. MEDICAL HISTORY : Sepsis. Hypertension Renal calculi. Diabetes SURGICAL HISTORY : Cholecystectomy. ENCOUNTER: Subsequent ACUITY: 3 days PAIN SCORE: Non-responsive. LOCATION: Left flank FINDINGS: Supine view of the abdomen was performed. The abdominal bowel gas pattern is normal. No abnormal ma sses, calcifications, or organomegaly is seen. The osseous structures are unremarkable. CONCLUSION: No acute disease. Renal calculi are not clearly visualized. Mickey Harris MD on April 02, 2017 at 4:45 Board Certified Radiologist. This report was verified electronically.
[2017-04-02] MEDS: HEPARIN SODIUM - SQ 10,000 UNITS/ML VIAL SQ SCH ×3 (05:01→20:34)
[2017-04-02] MEDS: INSULIN ASPART SUPPLEMENTAL SCALE SQ SCH ×4 (07:00→20:33)
[2017-04-02] MEDS: POTASSIUM CHLORIDE 10 MEQ CAP PO SCH (08:42)
[2017-04-02] MEDS: CEFEPIME INJ 2,000 MG in SODIUM CHLORIDE 0.9% INJ 100 ML IV SCH (08:42)
[2017-04-02] MEDS: PANTOPRAZOLE SOD 40 MG DELAYED RELEASE TAB PO SCH (08:43)
[2017-04-02] MEDS: LABETALOL HCL 200 MG TAB PO SCH ×2 (08:43→20:33)
[2017-04-02] MEDS: CLOPIDOGREL 75 MG TAB PO SCH (08:43)
[2017-04-02] MEDS: TAMSULOSIN HCL 0.4 MG CAP PO SCH (08:43)
[2017-04-02] MEDS: TOPIRAMATE 100 MG TAB PO SCH ×2 (08:43→20:33)
[2017-04-02] MEDS: DULoxetine HCl DR 60 MG CAP PO SCH ×2 (08:43→20:33)
[2017-04-02] MEDS: oxyCODONE/ACETAMINOPHEN 5 MG/325 MG TAB PO PRN (08:44)
[2017-04-02] MEDS: SODIUM CHLORIDE 0.9% FLUSH 10 ML FLUSH IV FLUSH SCH ×2 (08:45→20:36)
[2017-04-02] MEDS: SODIUM CHLOR 0.9% 1000 ML INJ 1,000 ML IV SCH ×2 (09:05→19:10)
[2017-04-02] MEDS ORDERED: LABETALOL HCL 200 MG TAB PO ONE (10:45)
[2017-04-02 11:39] LABS: AUTOMATED NEUTROPHIL # 16.5 TH/MM3 (1.8-7.7); BASOPHIL # 0.1 TH/MM3 (0-0.2); BASOPHIL % 0.4 % (0.0-2.0); EOSINOPHIL # 0.4 TH/MM3 (0-0.4); HEMATOCRIT 30.6 % (35.0-46.0); HEMO FLAGS DIFF FINAL; LYMPH % 7.9 % (9.0-44.0); LYMPHOCYTE # 1.6 TH/MM3 (1.0-4.8); MEAN CELL VOLUME 80.4 FL (80.0-100.0); MEAN CORPUSCULAR HEMOGLOBIN 26.8 PG (27.0-34.0); MEAN CORPUSCULAR HGB CONC 33.3 % (32.0-36.0); MONO % 6.1 % (0.0-8.0); NEUT % 83.6 % (16.0-70.0); PLATELET COUNT 340 TH/MM3 (150-450); RED CELL DISTRIBUTION WIDTH 16.7 % (11.6-17.2); WHITE BLOOD COUNT 19.7 TH/MM3 (4.0-11.0)
[2017-04-02 12:09] LABS: BICARBONATE 19.2 MEQ/L (21.0-32.0); POTASSIUM 3.8 MEQ/L (3.5-5.1)
--- NOTE | 2017-04-02 13:27 | MB ---
cc: TEJSA PAREDES MD DATE OF CONSULTATION: 04/01/2017. REASON FOR CONSULTATION: Kidney stones. Urosepsis. HISTORY OF PRESENT ILLNESS: The patient is a 41 -[place] female with a history of severe depression who was [facility] early last night due to poor appetite for the last two to three days as well as nausea and vomiting. The patient is a poor historian; however, she was complaining of diffuse abdominal pain as well as diarrhea for the last two to three days. She also complained of dysuria and urinary frequency. CT of pelvis without contrast was done which showed a small stone in her bladder and her right ureteral orifice as well as a 3 mm left mid ureteral stone with mild hydronephrosis. She was also found to have a white count of 36,000 and a creatinine of 1.7. She was admitted with a diagnosis of urosepsis and started on antibiotics and urology was consulted. On presentation to the ER she had a Perez catheter. She states she does not have a chronic Perez catheter and that it was placed in the [facility] for a urine sample; it was subsequently removed by the emergency room staff. She continues to complain of right side lower abdominal pain but it is nonspecific in nature. She denies fever or chills or any blood in her urine. She denies prior history of kidney stones or urinary tract infections. REVIEW OF SYSTEMS: See the history of present illness, otherwise all systems reviewed were otherwise negative. PAST MEDICAL HISTORY: Her past medical history is significant for: 1. Hypertension. 2. Diabetes. 3. Sleep apnea. 4. Stroke x2. 5. Seizures. 6. Morbid obesity. 7. Depression. PAST SURGICAL HISTORY: 1. Cholecystectomy. FAMILY HISTORY: Denies urolithiasis or genitourinary malignancies. SOCIAL HISTORY: Denies smoking, alcohol use or drug abuse. She is a [facility] patient, morbidly obese and bed-bound due to prior CVA. MEDICATIONS: Medication list was reviewed from the [facility]. PHYSICAL EXAMINATION: VITAL SIGNS: Temperature 99.4, pulse 100, respiratory rate 21, blood pressure 167/73 satting 100% on room air. GENERAL: In general, she is alert and awake and oriented x3 and in no apparent distress. HEAD, EYES, EARS, NOSE, THROAT: Head is Normocephalic and atraumatic. No scleral icterus. Extraocular muscles intact. NECK: The neck is supple. Trachea is midline. PSYCHIATRIC: Very flat affect. SKIN: No ulcers or rashes. Mucous membranes are pink and moist. LUNGS: Clear to auscultation bilaterally. HEART: Regular rate and rhythm. No murmurs, rubs or gallops. ABDOMEN: Abdomen soft but obese and nontender and nondistended. GENITOURINARY: Not indicated at this time. No costovertebral angle tenderness. EXTREMITIES: Nontender. No cyanosis, clubbing or edema. NEUROLOGIC: Strength 3/5 in all four extremities. Cranial nerves II through XII are intact. LABORATORY DATA White count 31, hemoglobin 9.6, hematocrit 31.0, platelet count 371,000. Sodium 139, potassium 3.5, chloride 109, bicarbonate 17, BUN 24, creatinine 1.55, glucose 168. IMAGING STUDIES: CT abdomen and pelvis without contrast images were reviewed. Agree with the radiologist's report. The patient has a left distal ureteral stone approximately 3 mm in size and mild hydronephrosis as well as bilateral nonobstructing stones and a small stone in her bladder near the right ureteral orifice, likely that she passed. ASSESSMENT AND PLAN: The patient is a 41-year-old -[place] female with severe depression who presented with poor appetite, nausea and abdominal pain and found to have a distal left obstructing stone and mild bilateral hydronephrosis with a urinary tract infection. PLAN: Recommend conservative management as the patient is improving. It is likely that she may have been having bilateral obstructing stones for the last few days and passed a stone on her right side with residual hydronephrosis. Her white count is improving and creatinine as well as her kidney function. She also has a small stone in her left distal ureter. Recommend conservative management of the stone. Will start her on Flomax and strain her urine. As long as she continues to improve, no urological intervention will be required; however, if she has pain or her clinical picture worsens then she will need intervention. Thank you for this consultation. Tejas Paredes MD EMFelipe/GERONIMO /6:29 AM /1:10 PM
--- NOTE | 2017-04-02 14:25 | HHI.PR ---
Subjective Remarks Follow-up for bacteremia/UTI Afebrile overnight, poor historian. Still tachycardic, hypertensive, denies any headache, very flat affect. Objective Vitals Vital Signs Date Time Temp Pulse Resp B/P Pulse Ox O2 Delivery O2 Flow Rate FiO2 04/02/17 12:00 98.3 04/02/17 08:00 103 04/02/17 08:00 97.8 103 17 179/83 99 04/02/17 04:00 98.5 96 21 182/90 97 04/02/17 04:00 96 04/02/17 00:00 98 04/02/17 00:00 98.6 98 28 200/91 99 04/01/17 20:00 98.8 98 21 174/94 98 04/01/17 20:00 98 04/01/17 16:15 95 04/01/17 16:00 96 04/01/17 16:00 99.2 04/01/17 16:00 96 25 171/77 98 04/01/17 15:53 95 19 170/78 99 04/01/17 15:52 95 25 171/78 99 04/01/17 15:45 96 25 99 04/01/17 15:30 97 21 100 04/01/17 15:15 99 24 97 04/01/17 15:00 101 25 99 04/01/17 14:45 99 26 98 04/01/17 14:30 101 04/01/17 14:30 101 22 99 I/O 04/01/17 04/01/17 04/01/17 04/02/17 04/02/17 04/02/17 07:00 15:00 23:00 07:00 15:00 23:00 Intake Total 1295 ml 464 ml 1026 ml 992 ml Output Total 1750 ml 1200 ml 550 ml 600 ml Balance -455 ml -736 ml 476 ml 392 ml Intake Oral 240 ml 240 ml 240 ml 150 ml IV Total 1055 ml 224 ml 786 ml 842 ml Output Urine Total 1750 ml 1200 ml 550 ml 600 ml Stool Total 0 ml Result Diagram: 04/02/17 1100 04/02/17 1100 Objective Remarks GENERAL: Not in distress. Morbid obesity. Flat affect. SKIN: No rashes, ecchymoses or lesions. Cool and dry. NECK: Trachea midline. No JVD CARDIOVASCULAR: Regular rate and rhythm without murmurs, gallops, or rubs. RESPIRATORY: Decreased air entry bilaterally. Poor exam due to body habitus GASTROINTESTINAL: Abdomen soft, nontender at all, nondistended. . No guarding. MUSCULOSKELETAL: Extremities without clubbing, cyanosis. No calf tenderness NEUROLOGICAL: Awake and alert, oriented 3. Positive for generalized weakness especially in the left but patient seems to be not giving any effort A/P Problem List: (1) HTN (hypertension) ICD Code: I10 Status: Chronic (2) DM (diabetes mellitus) ICD Code: E11.9 Status: Chronic (3) Sepsis ICD Code: A41.9 Status: Acute (4) Pyelonephritis ICD Code: N12 Status: Acute (5) Bacteremia ICD Code: R78.81 Status: Acute Assessment and Plan Severe sepsis secondary to pyelonephritis and bacteremia -Urine culture grew Escherichia coli, blood culture also grew Escherichia coli. Sensitive to ceftriaxone, stop ciprofloxacin due to increasing creatinine. Hypotension is better. CT scan showed perinephric standing. There is also ureteral stone, urology consulted, consult infectious disease. Leukocytosis better. Nausea/vomiting/diarrhea CT scan of the abdomen revealed hydronephrosis and hydroureter with left distal ureteral stone with perinephric stranding. Zofran as needed. Fibroids-CT scan showed fibroids, follow-up as outpatient Acute renal failure, possibly postobstructive- worsening despite IVF, could also be secondary to vancomycin, stop vancomycin, increase IVF. Urology consulted, recheck BMP tomorrow, keep Perez catheter in place. Check urine eosinophils Hypokalemia-resolved Depression-consult psychiatry, resumeD Cymbalta, hold off Klonopin for now and methylphenidate. RN added, psychiatry saw the patient. History of CVA- continue statin and Plavix Poor oral intake-could be secondary to depression, Remeron added. Hypertension-hold lisinopril, increase labetalol, start Norvasc. Hydralazine as needed Diabetes-sliding scale insulin for now, hold off long-acting insulin since patient is not eating. seizures-restart Topamax DVT prophylaxison heparin. GI prophylaxison pantoprazole. Discharge Planning Back to SNF when medically ready Jono Caballero MD Apr 02, 2017 14:25
--- NOTE | 2017-04-02 14:26 | HHI.PR ---
Subjective Patient symptoms today c/o vague upper abdominal pain. Denies any other issues. Objective Vital Signs Vital Signs Date Time Temp Pulse Resp B/P Pulse Ox O2 Delivery O2 Flow Rate FiO2 04/02/17 12:00 98.3 04/02/17 08:00 103 04/02/17 08:00 97.8 103 17 179/83 99 04/02/17 04:00 98.5 96 21 182/90 97 04/02/17 04:00 96 04/02/17 00:00 98 04/02/17 00:00 98.6 98 28 200/91 99 04/01/17 20:00 98.8 98 21 174/94 98 04/01/17 20:00 98 04/01/17 16:15 95 04/01/17 16:00 96 04/01/17 16:00 99.2 04/01/17 16:00 96 25 171/77 98 04/01/17 15:53 95 19 170/78 99 04/01/17 15:52 95 25 171/78 99 04/01/17 15:45 96 25 99 04/01/17 15:30 97 21 100 04/01/17 15:15 99 24 97 04/01/17 15:00 101 25 99 04/01/17 14:45 99 26 98 04/01/17 14:30 101 04/01/17 14:30 101 22 99 Intake & Output 04/02/17 04/02/17 07:00 19:00 Intake Total 2018 ml Output Total 1150 ml Balance 868 ml Intake Oral 390 ml IV Total 1628 ml Output Urine Total 1150 ml Result Diagram: 04/02/17 1100 04/02/17 1100 Imaging Last 24 hours Impressions Abdomen X-Ray 04/02/17 0600 Signed Impressions: Service Date/Time: Sunday, April 02, 2017 03:28 - CONCLUSION: No acute disease. Renal calculi are not clearly visualized. Mickey Harris MD Objective Remarks NAD. flat affect. abd obese, soft Medications and IVs Current Medications Medications (Trade) Dose Ordered Sig/Moriah Route Start Time Stop Time Status Last Admin (NS Flush) 2 ml UNSCH PRN IV FLUSH 03/31/17 23:15 (NS Flush) 2 ml BID IV FLUSH 04/01/17 09:00 04/02/17 08:45 (Narcan Inj) 0.4 mg UNSCH PRN IV 03/31/17 23:15 Miscellaneous Information 1 Q361D XX 04/01/17 01:00 (Chlorhexidine 2% Cloth) 3 pack Taper DAILY@04 TOP 04/01/17 04:00 03/28/18 03:59 04/01/17 22:02 (Chlorhexidine 2% Cloth) 3 pack UNSCH PRN TOP 04/01/17 01:00 (D50w (Vial) Inj) 50 ml UNSCH PRN IV 04/01/17 01:00 (Glucagon Inj) 1 mg UNSCH PRN OTHER 04/01/17 01:00 Heparin Sodium (Porcine) 5000 units 5,000 units Q8HR SQ 04/01/17 06:00 04/02/17 13:17 (NS 1000 ml Inj) 1,000 ml @ 100 mls/hr Q10H IV 04/01/17 01:15 04/02/17 09:05 (Protonix) 40 mg DAILY PO 04/01/17 09:00 04/02/17 08:43 (Flomax) 0.4 mg DAILY PO 04/01/17 13:00 04/02/17 08:43 (Lipitor) 40 mg HS PO 04/01/17 21:00 04/01/17 21:00 (Plavix) 75 mg DAILY PO 04/01/17 13:15 04/02/17 08:43 (Cymbalta Dr) 60 mg BID PO 04/01/17 13:15 04/02/17 08:43 (KCl) 10 meq DAILY PO 04/02/17 09:00 04/02/17 08:42 (Topamax) 100 mg BID PO 04/01/17 13:15 04/02/17 08:43 (Zofran Inj) 4 mg Q6HR PRN IV PUSH 04/01/17 13:15 (Remeron) 15 mg HS PO 04/01/17 21:00 04/01/17 21:00 (Percocet 5-325 Mg) 1 tab Q6H PRN PO 04/01/17 16:45 04/02/17 08:44 Labetalol HCl 400 mg 400 mg BID PO 04/02/17 21:00 (Rocephin Inj/NS Inj) 100 ml @ 200 mls/hr Q24H IV 04/02/17 15:00 Assessment and Plan Assessment and Plan 41 yo female with kidney stones, JANELL, mild bilateral hydronephrosis -WBC improved, but Blood /Urine Cultures + for E coli. On IV antibiotics. ID consult pending. -Cr up to 2.18. Will check Renal U/S. Depending upon results, may need cystoscopy, stent. Tejas Farooq MD Apr 02, 2017 14:26
[2017-04-02] MEDS: cefTRIAXone INJ 1,000 MG in SODIUM CHLORIDE 0.9% INJ 100 ML IV SCH (15:08)
[2017-04-02] MEDS ORDERED: RESP: ALBUTEROL 2.5 MG/IPRATROPIUM 0.5 MG NEB (PRN) NEB (15:45)
[2017-04-02] MEDS: ATORVASTATIN 40 MG TAB PO SCH (20:33)
[2017-04-02] MEDS: MIRTAZAPINE 15 MG TAB PO SCH (20:33)
--- NOTE | 2017-04-02 22:06 | RADRPT ---
EXAM DATE/TIME: 04/02/2017 14:37 [facility] COMPARISON: CT ABDOMEN & PELVIS W/O CONTRAST, March 31, 2017, 23:48. INDICATIONS : Increased Bun and Creatinine. MEDICAL HISTORY : CVA. Hypertension. Hypercholesterol. Diabetic. SURGICAL HISTORY : None. ENCOUNTER: Subsequent ACUITY: 2 days PAIN SCORE: 0/10 LOCATION: Bilateral flank MEASUREMENTS: RIGHT KIDNEY: 13.6 x 6.8 x 7.4 cm LEFT KIDNEY: 15.3 x 7.0 x 8.1 cm FINDINGS: The bladder wall appears thickened measuring 1 cm, however this could be due to lack of proper disten tion. There is mild hydronephrosis bilaterally in the kidneys. CONCLUSION: Slight hydronephrosis in both kidneys. Irene Nguyen MD on April 02, 2017 at 22:04 Board Certified Radiologist. This report was verified electronically.
[2017-04-03] VITALS (7 sets, daily range): BP systolic 131–183; BP diastolic 73–94; PULSE 105–113; RESP 16–19; TEMP 97.3–98.4; O2SAT 96–98
[2017-04-03] MEDS ORDERED: PHARMACY ORDERED LAB ONE (01:45)
[2017-04-03] MEDS: CHLORHEXIDINE GLUCONATE 2 % 1 PACK (2 CLOTHS) TOP SCH (04:00)
[2017-04-03] MEDS: SODIUM CHLOR 0.9% 1000 ML INJ 1,000 ML IV SCH ×2 (06:19→16:31)
[2017-04-03] MEDS: HEPARIN SODIUM - SQ 10,000 UNITS/ML VIAL SQ SCH ×3 (06:20→21:48)
[2017-04-03] MEDS: INSULIN ASPART SUPPLEMENTAL SCALE SQ SCH ×4 (06:22→21:00)
[2017-04-03] MEDS: TAMSULOSIN HCL 0.4 MG CAP PO SCH ×2 (09:00→09:20)
[2017-04-03] MEDS: DULoxetine HCl DR 60 MG CAP PO SCH ×3 (09:00→21:00)
[2017-04-03] MEDS: PANTOPRAZOLE SOD 40 MG DELAYED RELEASE TAB PO SCH ×2 (09:00→09:20)
[2017-04-03] MEDS: CLOPIDOGREL 75 MG TAB PO SCH ×2 (09:00→09:21)
[2017-04-03] MEDS: TOPIRAMATE 100 MG TAB PO SCH ×3 (09:00→21:47)
[2017-04-03] MEDS: LABETALOL HCL 200 MG TAB PO SCH ×3 (09:00→21:47)
[2017-04-03] MEDS: oxyCODONE/ACETAMINOPHEN 5 MG/325 MG TAB PO PRN (09:20)
[2017-04-03] MEDS: POTASSIUM CHLORIDE 10 MEQ CAP PO SCH (09:21)
[2017-04-03] MEDS: SODIUM CHLORIDE 0.9% FLUSH 10 ML FLUSH IV FLUSH SCH ×2 (09:21→21:47)
--- NOTE | 2017-04-03 14:53 | HHI.PR ---
Subjective Remarks Follow-up for bacteremia No fever overnight, feels better, right flank pain is better. Still with very flat affect. No nausea or vomiting. Objective Vitals Vital Signs Date Time Temp Pulse Resp B/P Pulse Ox O2 Delivery O2 Flow Rate FiO2 04/03/17 12:00 97.8 108 16 154/80 96 04/03/17 08:00 98.4 112 17 141/77 97 04/03/17 04:00 97.4 105 18 135/76 98 04/03/17 00:05 97.3 105 19 169/73 96 04/02/17 20:00 96.3 111 19 134/64 96 04/02/17 16:00 96.6 105 18 151/97 100 I/O 04/02/17 04/02/17 04/02/17 04/03/17 04/03/17 04/03/17 07:00 15:00 23:00 07:00 15:00 23:00 Intake Total 992 ml 1426 ml 1186 ml Output Total 600 ml Balance 392 ml 1426 ml 1186 ml Intake Oral 150 ml 240 ml 240 ml IV Total 842 ml 1186 ml 946 ml Output Urine Total 600 ml # Voids 2 3 # Bowel Movements 1 0 Result Diagram: 04/02/17 1100 04/02/17 1100 Objective Remarks GENERAL: Not in distress. Morbid obesity. Flat affect. SKIN: No rashes, ecchymoses or lesions. Cool and dry. NECK: Trachea midline. No JVD CARDIOVASCULAR: Regular rate and rhythm without murmurs, gallops, or rubs. RESPIRATORY: Decreased air entry bilaterally. Poor exam due to body habitus GASTROINTESTINAL: Abdomen soft, nontender at all, nondistended. MUSCULOSKELETAL: No edema. NEUROLOGICAL: Awake and alert, oriented 3. Positive for generalized weakness especially in the left but patient seems to be not giving any effort A/P Problem List: (1) HTN (hypertension) ICD Code: I10 Status: Chronic (2) DM (diabetes mellitus) ICD Code: E11.9 Status: Chronic (3) Sepsis ICD Code: A41.9 Status: Acute (4) Pyelonephritis ICD Code: N12 Status: Acute (5) Bacteremia ICD Code: R78.81 Status: Acute Assessment and Plan Severe sepsis secondary to pyelonephritis and bacteremia -Urine culture grew Escherichia coli, blood culture also grew Escherichia coli. Sensitive to ceftriaxone, stop ciprofloxacin due to increasing creatinine. Continue ceftriaxone for now. Hypotension is better. CT scan showed perinephric standing. There is also ureteral stone, urology saw the patient, ultrasound showed slight hydronephrosis bilaterally, might need cystoscopy. Awaiting input from infectious disease. Repeat blood culture negative to date. Nausea/vomiting/diarrhea CT scan of the abdomen revealed hydronephrosis and hydroureter with left distal ureteral stone with perinephric stranding. Zofran as needed. Fibroids-CT scan showed fibroids, follow-up as outpatient Acute renal failure, possibly postobstructive- worsening despite IVF, could also be secondary to vancomycin, stop vancomycin, increase IVF. Urology consulted as above, recheck BMP and CBC tomorrow. Check urine eosinophils. Hypokalemia-resolved Depression-consult psychiatry, resumeD Cymbalta, hold off Klonopin for now and methylphenidate. RN added, psychiatry saw the patient. History of CVA- continue statin and Plavix Poor oral intake-could be secondary to depression, Remeron added. Hypertension-hold lisinopril, increase labetalol, start Norvasc. Hydralazine as needed Diabetes-sliding scale insulin for now, hold off long-acting insulin since patient is not eating. seizures-restart Topamax Consult physical therapy. DVT prophylaxison heparin. GI prophylaxison pantoprazole. Discharge Planning Back to SNF when medically ready Jono Caballero MD Apr 03, 2017 14:53
--- NOTE | 2017-04-03 15:49 | PD.ID.CON ---
History of Present Illness Service ID Consult Requested By Dr Caballero Reason for Consult E.coli bacteremia Primary Care Physician Esteban Tesfaye MD Diagnoses: History of Present Illness 41 yo female detention patient, morbidly obese, bed bound due to prior CVA. SHe presented 2 days ago with few days of disuria, nausae, vomiting, diarrhea and malaise Pt was afebrile, but with extermely high WBC of 36 K Abnormal UA, urine and blood clx positive with E.coli Initially started on broad spectrum abx now on ceftriaxone CT with mild hydronephrosis and hydroureter bilaterally with a left distal ureteral stone present and mild perinephric stranding. He r repeat blood clx are negative but her ceratinine is rising now to 2.8 Urology following; may need cystoscopy, stent. Review of Systems ROS Limitations: Uncooperative Past Family Social History Allergies: Coded Allergies: No Known Allergies (Unverified , 08/29/16) Past Medical History htn dm sleep apnea cva x2 seizures morbid obesity Past Surgical History cholecystectomy Active Ordered Medications Medications where reviewed in EMR Antibiotics Include: CFTX Family History father had colon cancer Social History Denies smoking/alcohol abuse/drug abuse. Physical Exam Vital Signs Vital Signs Date Time Temp Pulse Resp B/P Pulse Ox O2 Delivery O2 Flow Rate FiO2 04/03/17 12:00 97.8 108 16 154/80 96 04/03/17 08:00 98.4 112 17 141/77 97 04/03/17 04:00 97.4 105 18 135/76 98 04/03/17 00:05 97.3 105 19 169/73 96 04/02/17 20:00 96.3 111 19 134/64 96 04/02/17 16:00 96.6 105 18 151/97 100 Physical Exam CONSTITUTIONAL/GENERAL: This is a morbidly obese patient, in no apparent distress. TUBES/LINES/DRAINS: SKIN: No jaundice, rashes, or lesions. Ecchymoses on upper extremities. No wounds seen anteriorly. Skin temperature appropriate. Not diaphoretic. HEAD: Atraumatic. Normocephalic. EYES: Pupils equal and round and reactive. Extraocular motions intact. No scleral icterus. No injection or drainage. Fundi not examined. ENT: Hearing grossly normal. Nose without bleeding or purulent drainage. Oral mucosae without visible erythema, exudates, masses, or lesions. NECK: Trachea midline. Supple, nontender. CARDIOVASCULAR: Regular rate and rhythm without murmurs, gallops, or rubs. No JVD. Peripheral pulses symmetric. RESPIRATORY/CHEST: Symmetric, unlabored respirations. Clear to auscultation. Breath sounds equal bilaterally. No wheezes, rales, or rhonchi. GASTROINTESTINAL: Abdomen soft, non-tender, nondistended. No hepato-splenomegaly , or palpable masses. No guarding. Bowel sounds present. GENITOURINARY: Without palpable bladder distension. MUSCULOSKELETAL: Extremities without clubbing, cyanosis, or edema. No joint tenderness or effusion noted. No calf tenderness. No mottling or clubbing. LYMPHATICS: No palpable cervical or supraclavicular adenopathy. NEUROLOGICAL: Awake and alert. L side hemiparesis . Follows commands. Cognitively sharp. PSYCHIATRIC: + depression. Mute. Calm, flat affect, does not talk; per RN talks entermittently. NO receptive aphasia Laboratory Date/Time Procedure Status Source Growth 04/01/17 11:13 Aerobic Blood Culture - Preliminary Resulted Blood Peripheral NO GROWTH IN 1 DAY 04/01/17 11:13 Anaerobic Blood Culture - Preliminary Resulted Blood Peripheral NO GROWTH IN 1 DAY 03/31/17 21:05 Urine Culture - Final Complete Urine Catheterized Urine Escherichia Coli Result Diagram: 04/02/17 1100 04/02/17 1100 Imaging Last Impressions Abdomen X-Ray 04/02/17 0600 Signed Impressions: Service Date/Time: Sunday, April 02, 2017 03:28 - CONCLUSION: No acute disease. Renal calculi are not clearly visualized. Mickey Harris MD Renal Ultrasound 04/02/17 0000 Signed Impressions: Service Date/Time: Sunday, April 02, 2017 14:37 - CONCLUSION: Slight hydronephrosis in both kidneys. Irene Nguyen MD Chest X-Ray 03/31/[id number] Signed Impressions: Service Date/Time: March 21:19 - CONCLUSION: No acute cardiopulmonary disease. Irene Nguyen MD Abdomen/Pelvis CT 03/31/17 0000 Signed Impressions: Service Date/Time: March 23:48 - CONCLUSION: 1. Mild hydronephrosis and hydroureter bilaterally with a left distal ureteral stone present. There is mild perinephric stranding. 2. Prominent globular configuration of the uterus with multiple calcifications consistent with a fibroid uterus. Mickey Harris MD Assessment and Plan Assessment and Plan UTI, E.coli - bacteremic - ? Obstruction - urologist ff [facility] low grade bacteremia, ? clin significance - repeat BC negative @ 1 day cont current abx fu isolate on [facility] Negrita Wayne MD Apr 03, 2017 15:49
[2017-04-03] MEDS: cefTRIAXone INJ 1,000 MG in SODIUM CHLORIDE 0.9% INJ 100 ML IV SCH (16:31)
[2017-04-03] MEDS: MIRTAZAPINE 15 MG TAB PO SCH (21:47)
[2017-04-03] MEDS: ATORVASTATIN 40 MG TAB PO SCH (21:47)
[2017-04-04] VITALS (8 sets, daily range): BP systolic 129–208; BP diastolic 72–100; PULSE 72–114; RESP 14–20; TEMP 95.9–99.2; O2SAT 94–98
[2017-04-04] MEDS: SODIUM CHLOR 0.9% 1000 ML INJ 1,000 ML IV SCH ×2 (03:35→12:19)
[2017-04-04] MEDS: CHLORHEXIDINE GLUCONATE 2 % 1 PACK (2 CLOTHS) TOP SCH (03:35)
[2017-04-04] MEDS: HEPARIN SODIUM - SQ 10,000 UNITS/ML VIAL SQ SCH ×3 (05:28→21:34)
[2017-04-04] MEDS: INSULIN ASPART SUPPLEMENTAL SCALE SQ SCH ×4 (05:28→21:00)
[2017-04-04 06:12] LABS: AUTOMATED NEUTROPHIL # 15.4 TH/MM3 (1.8-7.7); BASOPHIL # 0.2 TH/MM3 (0-0.2); BASOPHIL % 0.9 % (0.0-2.0); EOSINOPHIL # 0.5 TH/MM3 (0-0.4); EOSINOPHIL % 2.6 % (0.0-4.0); HEMATOCRIT 29.4 % (35.0-46.0); LYMPH % 12.8 % (9.0-44.0); LYMPHOCYTE # 2.6 TH/MM3 (1.0-4.8); MEAN CELL VOLUME 79.9 FL (80.0-100.0); MEAN CORPUSCULAR HEMOGLOBIN 25.5 PG (27.0-34.0); MEAN CORPUSCULAR HGB CONC 31.9 % (32.0-36.0); NEUT % 76.7 % (16.0-70.0); PLATELET COUNT 431 TH/MM3 (150-450); RED BLOOD COUNT 3.68 MIL/MM3 (4.00-5.30); RED CELL DISTRIBUTION WIDTH 16.7 % (11.6-17.2); WHITE BLOOD COUNT 20.1 TH/MM3 (4.0-11.0)
[2017-04-04 06:14] LABS: HEMO FLAGS AUTO DIFF
[2017-04-04 06:25] LABS: BICARBONATE 18.5 MEQ/L (21.0-32.0)
[2017-04-04 07:02] LABS: BANDS 5 % (0-6); BASOPHILS 1 % (0-2); METAMYELOCYTES 1 % (0-1); NEUTROPHIL # MANUAL DIFF 15.9 TH/MM3 (1.8-7.7); POLYS (SEG NEUTROPHILS) 73 % (16-70); WBC DIFF SAMPLE 100
[2017-04-04 07:03] LABS: OVALOCYTES 1+ (NORMAL); PLATELET ESTIMATE SMEAR HIGH (NORMAL); PLATELET MORPHOLOGY NORMAL (NORMAL); SCAN/DIFF FINAL DIFF MANUAL
[2017-04-04] MEDS: DULoxetine HCl DR 60 MG CAP PO SCH ×3 (09:00→21:33)
[2017-04-04] MEDS: POTASSIUM CHLORIDE 10 MEQ CAP PO SCH ×2 (09:00→09:21)
[2017-04-04] MEDS: TOPIRAMATE 100 MG TAB PO SCH ×3 (09:00→21:33)
[2017-04-04] MEDS: TAMSULOSIN HCL 0.4 MG CAP PO SCH ×2 (09:00→09:21)
[2017-04-04] MEDS: PANTOPRAZOLE SOD 40 MG DELAYED RELEASE TAB PO SCH ×2 (09:00→09:22)
[2017-04-04] MEDS: CLOPIDOGREL 75 MG TAB PO SCH (09:21)
[2017-04-04] MEDS: LABETALOL HCL 200 MG TAB PO SCH ×2 (09:22→21:33)
[2017-04-04] MEDS: SODIUM CHLORIDE 0.9% FLUSH 10 ML FLUSH IV FLUSH SCH ×2 (09:22→21:00)
[2017-04-04] MEDS ORDERED: POTASSIUM CHLORIDE 10 MEQ CONTROLLED RELEASE TAB PO ONE (10:00)
[2017-04-04] MEDS: oxyCODONE/ACETAMINOPHEN 5 MG/325 MG TAB PO PRN (13:40)
[2017-04-04] MEDS: cefTRIAXone INJ 1,000 MG in SODIUM CHLORIDE 0.9% INJ 100 ML IV SCH (13:40)
--- NOTE | 2017-04-04 14:39 | HHI.PR ---
Subjective Remarks Follow-up for sepsis due to pyelonephritis and bacteremia Patient is a poor historian due to history CVA She denies any pain. In terms of her blood pressure said that her blood pressure is usually not control. When asked what medication she was on she was not able to tell me. Denies any chest pain, shortness of breathing, palpitation or lightheadedness or dizziness. Patient remains afebrile. Objective Vitals Vital Signs Date Time Temp Pulse Resp B/P Pulse Ox O2 Delivery O2 Flow Rate FiO2 04/04/17 12:00 98.1 99 17 208/100 96 04/04/17 08:00 99.2 97 16 197/84 95 04/04/17 06:00 95.9 106 14 197/91 98 04/04/17 00:00 96.9 108 15 186/99 98 04/03/17 20:00 98.2 113 19 183/94 98 04/03/17 16:00 98.1 105 16 131/77 98 I/O 04/03/17 04/03/17 04/03/17 04/04/17 04/04/17 04/04/17 06:59 14:59 22:59 06:59 14:59 22:59 Intake Total 1186 ml 1645 ml 1340 ml 1040 ml 120 ml Balance 1186 ml 1645 ml 1340 ml 1040 ml 120 ml Intake Oral 240 ml 720 ml 540 ml 240 ml 120 ml IV Total 946 ml 925 ml 800 ml 800 ml # Voids 3 2 2 2 3 # Bowel Movements 0 0 0 1 2 Result Diagram: 04/04/17 0532 04/04/17 0532 Objective Remarks GENERAL: in NAD CARDIOVASCULAR: Regular rate and rhythm without murmurs, gallops, or rubs. RESPIRATORY: Breath sounds equal bilaterally. No accessory muscle use. GASTROINTESTINAL: Abdomen soft, non-tender, nondistended. Medications and IVs Current Medications Cefepime HCl 2000 mg/Sodium Chloride 100 ml @ 200 mls/hr ONCE STAT IV Last administered on 03/31/17 21:51; Start 03/31/17 at 20:38; Stop 04/01/17 at 11:36 ; Status DC Sodium Chloride 1,000 ml @ 999 mls/hr Q1H1M IV Last administered on 03/31/17 21:21; Start 03/31/17 at 20:45; Stop 03/31/17 at 21:45; Status DC Sodium Chloride (NS 1000 ml Inj) 1,000 ml @ 999 mls/hr Q1H1M IV Last administered on 03/31/17 21:21; Start 03/31/17 at 20:45; Stop 03/31/17 at 21:45 ; Status DC Acetaminophen (Tylenol) 1,000 mg ONCE ONCE PO Last administered on 03/31/17 21:21; Start 03/31/17 at 20:45; Stop 03/31/17 at 20:46; Status DC Morphine Sulfate (Morphine Inj) 4 mg ONCE ONCE IV PUSH Last administered on 21:21; Start 03/31/17 at 20:45; Stop 03/31/17 at 20:46; Status DC Lorazepam 0.5 mg 0.5 mg ONCE ONCE IV PUSH Last administered on 03/31/17 21:21 ; Start 03/31/17 at 20:45; Stop 03/31/17 at 20:46; Status DC Sodium Chloride 1,000 ml @ 999 mls/hr Q1H1M IV Last administered on 03/31/17 22:30; Start 03/31/17 at 22:15; Stop 03/31/17 at 23:15; Status DC Sodium Chloride 1,000 ml @ 999 mls/hr Q1H1M IV Last administered on 03/31/17 22:30; Start 03/31/17 at 22:15; Stop 03/31/17 at 23:15; Status DC Vancomycin HCl 1500 mg/Sodium Chloride 515 ml @ 257.5 mls/ hr ONCE ONCE IV Last administered on 03/31/17 23:15; Start 03/31/17 at 22:15; Stop 04/01/17 at 00:15; Status DC Sodium Chloride (NS 500 ml Inj) 500 ml @ 500 mls/hr BOLUS ONCE IV Last administered on 03/31/17 23:18; Start 03/31/17 at 22:45; Stop 03/31/17 at 23:44 ; Status DC Sodium Chloride (NS Flush) 2 ml UNSCH PRN IV FLUSH FLUSH AFTER USING IV ACCESS ; Start 03/31/17 at 23:15 Sodium Chloride (NS Flush) 2 ml BID IV FLUSH Last administered on 04/04/17 09: 22; Start 04/01/17 at 09:00 Naloxone HCl 0.4 mg 0.4 mg UNSCH PRN IV SEE LABEL COMMENTS; Start 03/31/17 at 23:15 Pharmacy Profile Note 0 ml @ 0 mls/hr UNSCH OTHER ; Start 03/31/17 at 23:15; Stop 04/01/17 at 11:36; Status DC Cefepime HCl 2000 mg/Sodium Chloride 100 ml @ 200 mls/hr Q12H IV Last administered on 04/01/17 08:59; Start 04/01/17 at 09:00; Stop 04/01/17 at 11:36 ; Status DC Ciprofloxacin/ Dextrose 200 ml @ 200 mls/hr Q12H IV Last administered on 11:40; Start 04/01/17 at 00:00; Stop 04/02/17 at 12:41; Status DC Vancomycin HCl/ Sodium Chloride (Vancomycin Inj/ NS 250 ml Inj) 250 ml @ 250 mls/hr ONCE ONCE IV Last administered on 04/01/17 02:38; Start 04/01/17 at 01 :00; Stop 04/01/17 at 01:59; Status DC Miscellaneous Information 1 Q361D XX ; Start 04/01/17 at 01:00 Chlorhexidine Gluconate (Chlorhexidine 2% Cloth) 3 pack Taper DAILY@04 TOP Last administered on 04/01/17 22:02; Start 04/01/17 at 04:00; Stop 03/28/18 at 03:59 Chlorhexidine Gluconate (Chlorhexidine 2% Cloth) 3 pack UNSCH PRN TOP HYGIENIC CARE; Start 04/01/17 at 01:00 Dextrose (D50w (Vial) Inj) 50 ml UNSCH PRN IV HYPOGLYCEMIA-SEE COMMENTS; Start 04/01/17 at 01:00 Glucagon (Glucagon Inj) 1 mg UNSCH PRN OTHER HYPOGLYCEMIA-SEE COMMENTS; Start 04/01/17 at 01:00 Insulin Aspart (NovoLOG SUPPLEMENTAL SCALE) 1 ACHS SLIDING SCALE SQ Last administered on 04/02/17 11:40; Start 04/01/17 at 07:00 Heparin Sodium (Porcine) 5000 units 5,000 units Q8HR SQ Last administered on 13:40; Start 04/01/17 at 06:00 Sodium Chloride (NS 1000 ml Inj) 1,000 ml @ 100 mls/hr Q10H IV Last administered on 04/04/17 12:19; Start 04/01/17 at 01:15 Potassium Bicarb/ Potassium Chloride (K-Lyte Cl Eff) 50 meq ONCE ONCE PO Last administered on 04/01/17 01:37; Start 04/01/17 at 01:15; Stop 04/01/17 at 01:16; Status DC Pantoprazole Sodium 40 mg 40 mg DAILY PO Last administered on 04/02/17 08:43; Start 04/01/17 at 09:00 Vancomycin HCl/ Sodium Chloride (Vancomycin Inj/ NS 500 ml Inj) 515 ml @ 257.5 mls/ hr Q12H IV ; Start 04/01/17 at 14:00; Stop 04/01/17 at 14:00; Status DC Miscellaneous Information SPECIFIC LAB TO BE RANULFO... ONCE ONCE .XX ; Start 04/03 at 01:45; Stop 04/03/17 at 01:45; Status DC Tamsulosin HCl 0.4 mg 0.4 mg DAILY PO Last administered on 04/02/17 08:43; Start 04/01/17 at 13:00 Cefepime HCl/ Sodium Chloride (Maxipime Inj/NS Inj) 100 ml @ 200 mls/hr Q12HR IV Last administered on 04/02/17 08:42; Start 04/01/17 at 21:00; Stop at 12:40; Status DC Atorvastatin Calcium (Lipitor) 40 mg HS PO Last administered on 04/03/17 21:47 ; Start 04/01/17 at 21:00 Clopidogrel Bisulfate (Plavix) 75 mg DAILY PO Last administered on 04/04/17 09 :21; Start 04/01/17 at 13:15 Duloxetine HCl (Cymbalta Dr) 60 mg BID PO Last administered on 04/02/17 20:33 ; Start 04/01/17 at 13:15 Labetalol HCl (Trandate) 200 mg BID PO Last administered on 04/02/17 08:43; Start 04/01/17 at 13:15; Stop 04/02/17 at 10:34; Status DC Potassium Chloride (KCl) 10 meq DAILY PO Last administered on 04/03/17 09:21; Start 04/02/17 at 09:00 Topiramate (Topamax) 100 mg BID PO Last administered on 04/03/17 21:47; Start 04/01/17 at 13:15 Ondansetron HCl (Zofran Inj) 4 mg Q6HR PRN IV PUSH n/v; Start 04/01/17 at 13:15 Mirtazapine (Remeron) 15 mg HS PO Last administered on 04/03/17 21:47; Start 04/01/17 at 21:00 Oxycodone/ Acetaminophen (Percocet 5-325 Mg) 1 tab Q6H PRN PO pain 3-10 Last administered on 04/04/17 13:40; Start 04/01/17 at 16:45 Metoprolol Tartrate (Lopressor Inj) 5 mg ONCE ONCE IV PUSH Last administered on 04/02/17 01:41; Start 04/02/17 at 01:30; Stop 04/02/17 at 01:36; Status DC Nifedipine (Procardia Xl) 30 mg ONCE ONCE PO Last administered on 04/02/17 03 :07; Start 04/02/17 at 03:00; Stop 04/02/17 at 03:01; Status DC Metoprolol Tartrate (Lopressor Inj) 5 mg ONCE ONCE IV PUSH Last administered on 04/02/17 03:07; Start 04/02/17 at 03:00; Stop 04/02/17 at 03:01; Status DC Hydralazine HCl (Apresoline Inj) 10 mg ONCE ONCE IV PUSH Last administered on 04/02/17 05:01; Start 04/02/17 at 04:45; Stop 04/02/17 at 04:47; Status DC Metoprolol Tartrate (Lopressor Inj) 5 mg ONCE ONCE IV PUSH Last administered on 04/02/17 05:01; Start 04/02/17 at 04:45; Stop 04/02/17 at 04:47; Status DC Labetalol HCl (Trandate) 400 mg BID PO Last administered on 04/04/17 09:22; Start 04/02/17 at 21:00 Labetalol HCl 200 mg 200 mg ONCE ONCE PO ; Start 04/02/17 at 10:45; Stop at 10:46; Status DC Ceftriaxone Sodium/Sodium Chloride (Rocephin Inj/NS Inj) 100 ml @ 200 mls/hr Q24H IV Last administered on 04/04/17t 13:40; Start 04/02/17 at 15:00 Albuterol/ Ipratropium (Duoneb Neb) 1 ampule Q4HR NEB PRN NEB sob; Start at 15:45 Potassium Chloride (KCl) 30 meq ONCE ONCE PO ; Start 04/04/17 at 10:00; Stop at 10:01; Status DC Potassium Bicarb/ Potassium Chloride (K-Lyte Cl Eff) 25 meq ONCE ONCE PO ; Start 04/04/17 at 14:45; Stop 04/04/17 at 14:46; Status UNV Amlodipine Besylate (Norvasc) 10 mg DAILY PO ; Start 04/04/17 at 14:45; Status UNV Clonidine (Catapres) 0.1 mg Q6H PRN PO SBP>180 or DBP >100; Start 04/04/17 at 14:45; Status UNV A/P Problem List: (1) HTN (hypertension) ICD Code: I10 Status: Chronic (2) DM (diabetes mellitus) ICD Code: E11.9 Status: Chronic (3) Sepsis ICD Code: A41.9 Status: Acute (4) Pyelonephritis ICD Code: N12 Status: Acute (5) Bacteremia ICD Code: R78.81 Status: Acute Assessment and Plan Severe sepsis secondary to pyelonephritis and bacteremia -Urine culture grew Escherichia coli, blood culture also grew Escherichia coli. Sensitive to ceftriaxone, stop ciprofloxacin due to increasing creatinine. Continue ceftriaxone for now. Hypotension is better. CT scan showed perinephric standing. There is also ureteral stone, urology saw the patient, ultrasound showed slight hydronephrosis bilaterally, might need cystoscopy. Awaiting input from infectious disease. Repeat blood culture negative to date. Nausea/vomiting/diarrhea resolved. CT scan of the abdomen revealed hydronephrosis and hydroureter with left distal ureteral stone with perinephric stranding. Urologist determined patient may need a stent. Zofran as needed. Fibroids-CT scan showed fibroids, follow-up as outpatient Acute renal failure, possibly postobstructive- worsening despite IVF, could also be secondary to vancomycin, stop vancomycin, increase IVF. This may be due to obstruction. Urologist to determine if patient needs stent placement. Numerical value of urine output was not reported. Order placed for nurse to record amount of urine. Will need to continue to monitor. If does not improve tomorrow may need to consider repeat renal ultrasound to see if hydronephrosis worsen. Hypokalemia-will need to continue to replenish as needed. Depression-consult psychiatry, resume Cymbalta, hold off Klonopin for now and methylphenidate. RN added, psychiatry saw the patient. History of CVA- continue statin and Plavix. Patient has bilateral weakness secondary to multiple CVA. PT consulted. Once patient is medically stable she will most likely go back to the care home. Poor oral intake-could be secondary to depression. On Remeron. Hypertension-patient is labetalol. Will add amlodipine. Clonidine when necessary. Diabetes-sliding scale insulin for now, hold off long-acting insulin since patient is not eating. seizures-continue Topamax DVT prophylaxison heparin. GI prophylaxison pantoprazole. Camelia Hernandez MD Apr 04, 2017 14:39
[2017-04-04] MEDS ORDERED: POTASSIUM CHLORIDE 25 MEQ EFFERVESCENT TAB PO ONE (14:45)
[2017-04-04] MEDS: ATORVASTATIN 40 MG TAB PO SCH (21:33)
[2017-04-04] MEDS: MIRTAZAPINE 15 MG TAB PO SCH (21:33)
[2017-04-04] MEDS: cloNIDine HCL 0.1 MG TAB PO PRN (21:34)
[2017-04-05] VITALS (7 sets, daily range): BP systolic 135–210; BP diastolic 68–105; PULSE 71–98; RESP 16–20; TEMP 97.1–99.5; O2SAT 93–98
[2017-04-05] MEDS: SODIUM CHLOR 0.9% 1000 ML INJ 1,000 ML IV SCH ×3 (00:05→18:08)
[2017-04-05] MEDS ORDERED: cloNIDine HCL 0.1 MG TAB PO ONE (02:00)
[2017-04-05] MEDS: CHLORHEXIDINE GLUCONATE 2 % 1 PACK (2 CLOTHS) TOP SCH (03:38)
[2017-04-05] MEDS: HEPARIN SODIUM - SQ 10,000 UNITS/ML VIAL SQ SCH ×3 (05:03→23:27)
[2017-04-05] MEDS: INSULIN ASPART SUPPLEMENTAL SCALE SQ SCH ×4 (06:14→23:35)
[2017-04-05] MEDS: LABETALOL HCL 200 MG TAB PO SCH ×2 (08:56→23:13)
[2017-04-05] MEDS: SODIUM CHLORIDE 0.9% FLUSH 10 ML FLUSH IV FLUSH SCH ×2 (08:57→23:36)
[2017-04-05] MEDS: DULoxetine HCl DR 60 MG CAP PO SCH ×2 (09:00→23:12)
[2017-04-05] MEDS: CLOPIDOGREL 75 MG TAB PO SCH (09:00)
[2017-04-05] MEDS: TOPIRAMATE 100 MG TAB PO SCH ×3 (09:00→23:12)
[2017-04-05] MEDS: PANTOPRAZOLE SOD 40 MG DELAYED RELEASE TAB PO SCH ×2 (09:00→11:15)
[2017-04-05] MEDS: TAMSULOSIN HCL 0.4 MG CAP PO SCH (09:00)
[2017-04-05] MEDS: POTASSIUM CHLORIDE 10 MEQ CAP PO SCH (09:00)
[2017-04-05] MEDS ORDERED: MELA0.02 (09:48)
[2017-04-05] MEDS ORDERED: CLON.5 PO (09:48)
[2017-04-05] MEDS ORDERED: TRAD5TAB PO (09:48)
[2017-04-05] MEDS ORDERED: LEVE500 PO (09:48)
[2017-04-05] MEDS ORDERED: CLON0.3T PO (09:48)
[2017-04-05] MEDS ORDERED: AMLO10TA2 PO (09:48)
[2017-04-05] MEDS ORDERED: VIIB40TA PO (09:48)
[2017-04-05] MEDS ORDERED: METF850T PO (09:48)
[2017-04-05] MEDS ORDERED: hydrALAZINE HCL 50 MG TAB PO SCH (10:00)
[2017-04-05 10:01] LABS: HEMATOCRIT 31.2 % (35.0-46.0); MEAN CELL VOLUME 79.9 FL (80.0-100.0); MEAN CORPUSCULAR HEMOGLOBIN 25.6 PG (27.0-34.0); PLATELET COUNT 455 TH/MM3 (150-450); RED CELL DISTRIBUTION WIDTH 16.4 % (11.6-17.2); REVIEW FLAG FINAL
--- NOTE | 2017-04-05 10:21 | HHI.PR ---
Subjective Remarks Follow-up for bacteremia, UTI and uncontrolled blood pressure Patient stated she feels a lot better today. She denies any pain. Her nurse is at the bedside during the interview. Per nurse patient is having good urine output. Remains afebrile. Due to difficulty swallowing patient intermittently takes her medication. She was not able take any clonidine today. Per nurse she will try crushing into food. Objective Vitals Vital Signs Date Time Temp Pulse Resp B/P Pulse Ox O2 Delivery O2 Flow Rate FiO2 04/05/17 08:00 98.7 86 16 208/91 97 198/92 04/05/17 04:00 97.1 75 20 196/93 93 04/05/17 01:30 162/105 04/05/17 00:00 99.0 86 18 210/101 94 04/04/17 22:00 107 04/04/17 20:00 99.1 114 20 187/100 94 04/04/17 16:00 98.6 95 17 174/79 95 04/04/17 12:00 98.1 99 17 208/100 96 I/O 04/04/17 04/04/17 04/04/17 04/05/17 04/05/17 04/05/17 07:00 15:00 23:00 07:00 15:00 23:00 Intake Total 1040 ml 120 ml 1491 ml 626 ml Balance 1040 ml 120 ml 1491 ml 626 ml Intake Oral 240 ml 120 ml IV Total 800 ml 1491 ml 626 ml # Voids 2 3 5 # Bowel Movements 1 2 Result Diagram: 04/05/17 0846 04/04/17 0532 Objective Remarks GENERAL: in NAD CARDIOVASCULAR: Regular rate and rhythm without murmurs, gallops, or rubs. RESPIRATORY: Breath sounds equal bilaterally. No accessory muscle use. GASTROINTESTINAL: Abdomen soft, non-tender, nondistended. Medications and IVs Current Medications Cefepime HCl 2000 mg/Sodium Chloride 100 ml @ 200 mls/hr ONCE STAT IV Last administered on 03/31/17 21:51; Start 03/31/17 at 20:38; Stop 04/01/17 at 11:36 ; Status DC Sodium Chloride 1,000 ml @ 999 mls/hr Q1H1M IV Last administered on 03/31/17 21:21; Start 03/31/17 at 20:45; Stop 03/31/17 at 21:45; Status DC Sodium Chloride (NS 1000 ml Inj) 1,000 ml @ 999 mls/hr Q1H1M IV Last administered on 03/31/17 21:21; Start 03/31/17 at 20:45; Stop 03/31/17 at 21:45 ; Status DC Acetaminophen (Tylenol) 1,000 mg ONCE ONCE PO Last administered on 03/31/17 21:21; Start 03/31/17 at 20:45; Stop 03/31/17 at 20:46; Status DC Morphine Sulfate (Morphine Inj) 4 mg ONCE ONCE IV PUSH Last administered on 21:21; Start 03/31/17 at 20:45; Stop 03/31/17 at 20:46; Status DC Lorazepam 0.5 mg 0.5 mg ONCE ONCE IV PUSH Last administered on 03/31/17 21:21 ; Start 03/31/17 at 20:45; Stop 03/31/17 at 20:46; Status DC Sodium Chloride 1,000 ml @ 999 mls/hr Q1H1M IV Last administered on 03/31/17 22:30; Start 03/31/17 at 22:15; Stop 03/31/17 at 23:15; Status DC Sodium Chloride 1,000 ml @ 999 mls/hr Q1H1M IV Last administered on 03/31/17 22:30; Start 03/31/17 at 22:15; Stop 03/31/17 at 23:15; Status DC Vancomycin HCl 1500 mg/Sodium Chloride 515 ml @ 257.5 mls/ hr ONCE ONCE IV Last administered on 03/31/17 23:15; Start 03/31/17 at 22:15; Stop 04/01/17 at 00:15; Status DC Sodium Chloride (NS 500 ml Inj) 500 ml @ 500 mls/hr BOLUS ONCE IV Last administered on 03/31/17 23:18; Start 03/31/17 at 22:45; Stop 03/31/17 at 23:44 ; Status DC Sodium Chloride (NS Flush) 2 ml UNSCH PRN IV FLUSH FLUSH AFTER USING IV ACCESS ; Start 03/31/17 at 23:15 Sodium Chloride (NS Flush) 2 ml BID IV FLUSH Last administered on 7/18/17at 08: 57; Start 04/01/17 at 09:00 Naloxone HCl 0.4 mg 0.4 mg UNSCH PRN IV SEE LABEL COMMENTS; Start 03/31/17 at 23:15 Pharmacy Profile Note 0 ml @ 0 mls/hr UNSCH OTHER ; Start 03/31/17 at 23:15; Stop 04/01/17 at 11:36; Status DC Cefepime HCl 2000 mg/Sodium Chloride 100 ml @ 200 mls/hr Q12H IV Last administered on 04/01/17 08:59; Start 04/01/17 at 09:00; Stop 04/01/17 at 11:36 ; Status DC Ciprofloxacin/ Dextrose 200 ml @ 200 mls/hr Q12H IV Last administered on 11:40; Start 04/01/17 at 00:00; Stop 04/02/17 at 12:41; Status DC Vancomycin HCl/ Sodium Chloride (Vancomycin Inj/ NS 250 ml Inj) 250 ml @ 250 mls/hr ONCE ONCE IV Last administered on 04/01/17 02:38; Start 04/01/17 at 01 :00; Stop 04/01/17 at 01:59; Status DC Miscellaneous Information 1 Q361D XX ; Start 04/01/17 at 01:00 Chlorhexidine Gluconate (Chlorhexidine 2% Cloth) 3 pack Taper DAILY@04 TOP Last administered on 04/01/17 22:02; Start 04/01/17 at 04:00; Stop 03/28/18 at 03:59 Chlorhexidine Gluconate (Chlorhexidine 2% Cloth) 3 pack UNSCH PRN TOP HYGIENIC CARE; Start 04/01/17 at 01:00 Dextrose (D50w (Vial) Inj) 50 ml UNSCH PRN IV HYPOGLYCEMIA-SEE COMMENTS; Start 04/01/17 at 01:00 Glucagon (Glucagon Inj) 1 mg UNSCH PRN OTHER HYPOGLYCEMIA-SEE COMMENTS; Start 04/01/17 at 01:00 Insulin Aspart (NovoLOG SUPPLEMENTAL SCALE) 1 ACHS SLIDING SCALE SQ Last administered on 04/02/17 11:40; Start 04/01/17 at 07:00 Heparin Sodium (Porcine) 5000 units 5,000 units Q8HR SQ Last administered on 05:03; Start 04/01/17 at 06:00 Sodium Chloride (NS 1000 ml Inj) 1,000 ml @ 100 mls/hr Q10H IV Last administered on 04/05/17 00:05; Start 04/01/17 at 01:15 Potassium Bicarb/ Potassium Chloride (K-Lyte Cl Eff) 50 meq ONCE ONCE PO Last administered on 04/01/17 01:37; Start 04/01/17 at 01:15; Stop 04/01/17 at 01:16; Status DC Pantoprazole Sodium 40 mg 40 mg DAILY PO Last administered on 04/02/17 08:43; Start 04/01/17 at 09:00 Vancomycin HCl/ Sodium Chloride (Vancomycin Inj/ NS 500 ml Inj) 515 ml @ 257.5 mls/ hr Q12H IV ; Start 04/01/17 at 14:00; Stop 04/01/17 at 14:00; Status DC Miscellaneous Information SPECIFIC LAB TO BE RANULFO... ONCE ONCE .XX ; Start 04/03 at 01:45; Stop 04/03/17 at 01:45; Status DC Tamsulosin HCl 0.4 mg 0.4 mg DAILY PO Last administered on 04/02/17 08:43; Start 04/01/17 at 13:00 Cefepime HCl/ Sodium Chloride (Maxipime Inj/NS Inj) 100 ml @ 200 mls/hr Q12HR IV Last administered on 04/02/17 08:42; Start 04/01/17 at 21:00; Stop at 12:40; Status DC Atorvastatin Calcium (Lipitor) 40 mg HS PO Last administered on 04/04/17 21:33 ; Start 04/01/17 at 21:00 Clopidogrel Bisulfate (Plavix) 75 mg DAILY PO Last administered on 04/05/17 09 :00; Start 04/01/17 at 13:15 Duloxetine HCl (Cymbalta Dr) 60 mg BID PO Last administered on 04/04/17 21:33 ; Start 04/01/17 at 13:15 Labetalol HCl (Trandate) 200 mg BID PO Last administered on 04/02/17 08:43; Start 04/01/17 at 13:15; Stop 04/02/17 at 10:34; Status DC Potassium Chloride (KCl) 10 meq DAILY PO Last administered on 04/03/17 09:21; Start 04/02/17 at 09:00 Topiramate (Topamax) 100 mg BID PO Last administered on 04/04/17 21:33; Start 04/01/17 at 13:15 Ondansetron HCl (Zofran Inj) 4 mg Q6HR PRN IV PUSH n/v Last administered on 00:05; Start 04/01/17 at 13:15 Mirtazapine (Remeron) 15 mg HS PO Last administered on 04/04/17 21:33; Start 04/01/17 at 21:00 Oxycodone/ Acetaminophen (Percocet 5-325 Mg) 1 tab Q6H PRN PO pain 3-10 Last administered on 04/04/17 13:40; Start 04/01/17 at 16:45 Metoprolol Tartrate (Lopressor Inj) 5 mg ONCE ONCE IV PUSH Last administered on 04/02/17 01:41; Start 04/02/17 at 01:30; Stop 04/02/17 at 01:36; Status DC Nifedipine (Procardia Xl) 30 mg ONCE ONCE PO Last administered on 04/02/17 03 :07; Start 04/02/17 at 03:00; Stop 04/02/17 at 03:01; Status DC Metoprolol Tartrate (Lopressor Inj) 5 mg ONCE ONCE IV PUSH Last administered on 04/02/17 03:07; Start 04/02/17 at 03:00; Stop 04/02/17 at 03:01; Status DC Hydralazine HCl (Apresoline Inj) 10 mg ONCE ONCE IV PUSH Last administered on 04/02/17 05:01; Start 04/02/17 at 04:45; Stop 04/02/17 at 04:47; Status DC Metoprolol Tartrate (Lopressor Inj) 5 mg ONCE ONCE IV PUSH Last administered on 04/02/17 05:01; Start 04/02/17 at 04:45; Stop 04/02/17 at 04:47; Status DC Labetalol HCl (Trandate) 400 mg BID PO Last administered on 04/05/17 08:56; Start 04/02/17 at 21:00 Labetalol HCl 200 mg 200 mg ONCE ONCE PO ; Start 04/02/17 at 10:45; Stop at 10:46; Status DC Ceftriaxone Sodium/Sodium Chloride (Rocephin Inj/NS Inj) 100 ml @ 200 mls/hr Q24H IV Last administered on 04/04/17 13:40; Start 04/02/17 at 15:00 Albuterol/ Ipratropium (Duoneb Neb) 1 ampule Q4HR NEB PRN NEB sob; Start at 15:45 Potassium Chloride (KCl) 30 meq ONCE ONCE PO ; Start 04/04/17 at 10:00; Stop at 10:01; Status DC Potassium Bicarb/ Potassium Chloride (K-Lyte Cl Eff) 25 meq ONCE ONCE PO Last administered on 04/04/17 15:08; Start 04/04/17 at 14:45; Stop 04/04/17 at 15:01; Status DC Amlodipine Besylate (Norvasc) 10 mg DAILY PO Last administered on 04/04/17 15: 07; Start 04/04/17 at 14:45 Clonidine (Catapres) 0.1 mg Q6H PRN PO SBP>180 or DBP >100 Last administered on 04/04/17 21:34; Start 04/04/17 at 14:45 Clonidine (Catapres) 0.1 mg ONCE ONCE PO Last administered on 04/05/17 02:40 ; Start 04/05/17 at 02:00; Stop 04/05/17 at 02:01; Status DC Hydralazine HCl (Apresoline) 50 mg Q8H PO ; Start 04/05/17 at 10:00; Stop at 10:17; Status DC Clonidine (Catapres) 0.3 mg TID PO ; Start 04/05/17 at 13:00; Status UNV Levetriacetam (Keppra) 500 mg BID PO ; Start 04/05/17 at 21:00; Status UNV Non-Formulary Medication 40 mg DAILY PO ; Start 04/06/17 at 09:00; Status UNV A/P Problem List: (1) HTN (hypertension) ICD Code: I10 Status: Chronic (2) DM (diabetes mellitus) ICD Code: E11.9 Status: Chronic (3) Sepsis ICD Code: A41.9 Status: Acute (4) Pyelonephritis ICD Code: N12 Status: Acute (5) Bacteremia ICD Code: R78.81 Status: Acute Assessment and Plan Severe sepsis secondary to pyelonephritis and bacteremia -Urine culture grew Escherichia coli, blood culture also grew Escherichia coli. Sensitive to ceftriaxone, stop ciprofloxacin due to increasing creatinine. Continue ceftriaxone for now. Hypotension is better. CT scan showed perinephric standing. There is also ureteral stone, urology saw the patient, ultrasound showed slight hydronephrosis bilaterally, might need cystoscopy. Repeat blood culture negative to date. Nausea/vomiting/diarrhea resolved. CT scan of the abdomen revealed hydronephrosis and hydroureter with left distal ureteral stone with perinephric stranding. Urologist determined patient may need a stent. Zofran as needed. Fibroids-CT scan showed fibroids, follow-up as outpatient Acute renal failure, possibly postobstructive- worsening despite IVF, could also be secondary to vancomycin, stop vancomycin, increase IVF. This may be due to obstruction. Urologist to determine if patient needs stent placement. pending cr from today. If no improvement will repeat us and call urologist pending results. Hypokalemia-will need to continue to replenish as needed. Depression-consulted psychiatry, resume Cymbalta, hold off Klonopin for now and methylphenidate. RN added, psychiatry saw the patient. History of CVA- continue statin and Plavix. Patient has bilateral weakness secondary to multiple CVA. PT consulted. Once patient is medically stable she will most likely go back to the [facility]. Poor oral intake-could be secondary to depression. On Remeron. Hypertension-medication list was updated today. Continue with labetalol and amlodipine. Will resume clonidine. Diabetes-sliding scale insulin for now, hold off long-acting insulin since patient is not eating. seizures-continue Topamax DVT prophylaxison heparin. GI prophylaxison pantoprazole. Camelia Hernandez MD Apr 05, 2017 10:21
[2017-04-05 10:24] LABS: BICARBONATE 21.6 MEQ/L (21.0-32.0)
[2017-04-05 10:27] LABS: POTASSIUM 2.9 MEQ/L (3.5-5.1)
[2017-04-05] MEDS ORDERED: POTASSIUM CHLORIDE 25 MEQ EFFERVESCENT TAB PO ONE (11:00)
[2017-04-05] MEDS: cloNIDine HCL 0.3 MG TAB PO SCH ×2 (11:15→18:08)
[2017-04-05] MEDS: cefTRIAXone INJ 1,000 MG in SODIUM CHLORIDE 0.9% INJ 100 ML IV SCH (14:39)
--- NOTE | 2017-04-05 16:43 | HHI.IDPN ---
Subjective Subjective Remarks pt is not talking no fever Antibiotics CFTX Allergies: Coded Allergies: No Known Allergies (Unverified , 08/29/16) Objective . Vital Signs Date Time Temp Pulse Resp B/P Pulse Ox O2 Delivery O2 Flow Rate FiO2 04/05/17 16:00 99.5 82 18 178/85 98 04/05/17 12:00 98.7 98 19 167/81 98 04/05/17 08:00 98.7 86 16 208/91 97 198/92 04/05/17 04:00 97.1 75 20 196/93 93 04/05/17 01:30 162/105 04/05/17 00:00 99.0 86 18 210/101 94 04/04/17 22:00 107 04/04/17 20:00 99.1 114 20 187/100 94 04/04/17 04/04/17 04/05/17 15:00 23:00 07:00 Intake Total 120 ml 1491 ml 626 ml Balance 120 ml 1491 ml 626 ml Intake Oral 120 ml IV Total 1491 ml 626 ml # Voids 3 5 # Bowel Movements 2 . Laboratory Tests Test 04/04/17 04/05/17 05:32 08:46 White Blood Count 20.1 TH/MM3 21.0 TH/MM3 Red Blood Count 3.68 MIL/MM3 3.90 MIL/MM3 Hemoglobin 9.4 GM/DL 10.0 GM/DL Hematocrit 29.4 % 31.2 % Mean Corpuscular Volume 79.9 FL 79.9 FL Mean Corpuscular Hemoglobin 25.5 PG 25.6 PG Mean Corpuscular Hemoglobin 31.9 % 32.0 % Concent Red Cell Distribution Width 16.7 % 16.4 % Platelet Count 431 TH/MM3 455 TH/MM3 Mean Platelet Volume 8.5 FL 8.2 FL Neutrophils (%) (Auto) 76.7 % Lymphocytes (%) (Auto) 12.8 % Monocytes (%) (Auto) 7.0 % Eosinophils (%) (Auto) 2.6 % Basophils (%) (Auto) 0.9 % Neutrophils # (Auto) 15.4 TH/MM3 Lymphocytes # (Auto) 2.6 TH/MM3 Monocytes # (Auto) 1.4 TH/MM3 Eosinophils # (Auto) 0.5 TH/MM3 Basophils # (Auto) 0.2 TH/MM3 CBC Comment AUTO DIFF Differential Total Cells 100 Counted Neutrophils % (Manual) 73 % Band Neutrophils % 5 % Lymphocytes % 13 % Monocytes % 7 % Basophils % 1 % Neutrophils # (Manual) 15.9 TH/MM3 Metamyelocytes 1 % Differential Comment FINAL DIFF MANUAL Platelet Estimate HIGH Platelet Morphology Comment NORMAL Ovalocytes 1+ Laboratory Tests Test 04/04/17 04/05/17 05:32 08:46 Sodium Level 142 MEQ/L 145 MEQ/L Potassium Level 3.0 MEQ/L 2.9 MEQ/L Chloride Level 112 MEQ/L 111 MEQ/L Carbon Dioxide Level 18.5 MEQ/L 21.6 MEQ/L Anion Gap 12 MEQ/L 12 MEQ/L Blood Urea Nitrogen 19 MG/DL 12 MG/DL Creatinine 1.83 MG/DL 1.42 MG/DL Estimat Glomerular Filtration 37 ML/MIN 49 ML/MIN Rate Random Glucose 138 MG/DL 113 MG/DL Calcium Level 8.0 MG/DL 7.9 MG/DL Magnesium Level 0.9 MG/DL Imaging Last Impressions Abdomen X-Ray 04/02/17 0600 Signed Impressions: Service Date/Time: Sunday, April 02, 2017 03:28 - CONCLUSION: No acute disease. Renal calculi are not clearly visualized. Mickey Harris MD Renal Ultrasound 04/02/17 0000 Signed Impressions: Service Date/Time: Sunday, April 02, 2017 14:37 - CONCLUSION: Slight hydronephrosis in both kidneys. Irene Nguyen MD Chest X-Ray 03/31/[id number] Signed Impressions: Service Date/Time: March 21:19 - CONCLUSION: No acute cardiopulmonary disease. Irene Nguyen MD Abdomen/Pelvis CT 03/31/17 0000 Signed Impressions: Service Date/Time: March 23:48 - CONCLUSION: 1. Mild hydronephrosis and hydroureter bilaterally with a left distal ureteral stone present. There is mild perinephric stranding. 2. Prominent globular configuration of the uterus with multiple calcifications consistent with a fibroid uterus. Mickey Harris MD Physical Exam CONSTITUTIONAL/GENERAL: This is a morbidly obese patient, in no apparent distress. TUBES/LINES/DRAINS: SKIN: No jaundice, rashes, or lesions.Skin temperature appropriate. Not diaphoretic. EYES: Pupils equal and round and reactive. Extraocular motions intact. No scleral icterus. No injection or drainage. Fundi not examined. ENT: Oral mucosae without visible erythema, exudates, masses, or lesions. CARDIOVASCULAR: Regular rate and rhythm without murmurs, gallops, or rubs. No JVD. Peripheral pulses symmetric. RESPIRATORY/CHEST: Symmetric, unlabored respirations. Clear to auscultation. Breath sounds equal bilaterally. No wheezes, rales, or rhonchi. GASTROINTESTINAL: Abdomen soft, non-tender, nondistended. No hepato-splenomegaly , or palpable masses. No guarding. Bowel sounds present. MUSCULOSKELETAL: Extremities without clubbing, cyanosis, or edema. No mottling or clubbing. NEUROLOGICAL: Awake and alert. L side hemiparesis . Follows commands. Not talking PSYCHIATRIC: + depression. Mute. Calm, flat affect, does not talk; per RN talks entermittently. NO receptive aphasia Assessment & Plan Remarks UTI, E.coli - bacteremic - ? Obstruction - urologist ff Worsening leukocytosis JANELL, creatinine improved Vir strep low grade bacteremia, doubt clin significance - repeat BC negative @ 1 day cont CFTX monitor WBC Negrita Wayne MD Apr 05, 2017 16:43
--- NOTE | 2017-04-05 18:31 | HHI.PR ---
Subjective Patient symptoms today not talking. no fevers. good uop. Objective Vital Signs Vital Signs Date Time Temp Pulse Resp B/P Pulse Ox O2 Delivery O2 Flow Rate FiO2 04/05/17 16:00 99.5 82 18 178/85 98 04/05/17 12:00 98.7 98 19 167/81 98 04/05/17 08:00 98.7 86 16 208/91 97 198/92 04/05/17 04:00 97.1 75 20 196/93 93 04/05/17 01:30 162/105 04/05/17 00:00 99.0 86 18 210/101 94 04/04/17 22:00 107 04/04/17 20:00 99.1 114 20 187/100 94 Intake & Output 04/05/17 04/05/17 07:00 19:00 Intake Total 2117 ml 1040 ml Balance 2117 ml 1040 ml Intake Oral 240 ml IV Total 2117 ml 800 ml # Voids 5 3 # Bowel Movements 2 Result Diagram: 04/05/17 0846 04/05/17 0846 Objective Remarks NAD. flat affect. abd obese, soft Medications and IVs Current Medications Medications (Trade) Dose Ordered Sig/Moriah Route Start Time Stop Time Status Last Admin (NS Flush) 2 ml UNSCH PRN IV FLUSH 03/31/17 23:15 (NS Flush) 2 ml BID IV FLUSH 04/01/17 09:00 04/05/17 08:57 (Narcan Inj) 0.4 mg UNSCH PRN IV 03/31/17 23:15 Miscellaneous Information 1 Q361D XX 04/01/17 01:00 (Chlorhexidine 2% Cloth) 3 pack Taper DAILY@04 TOP 04/01/17 04:00 03/28/18 03:59 04/01/17 22:02 (Chlorhexidine 2% Cloth) 3 pack UNSCH PRN TOP 04/01/17 01:00 (D50w (Vial) Inj) 50 ml UNSCH PRN IV 04/01/17 01:00 (Glucagon Inj) 1 mg UNSCH PRN OTHER 04/01/17 01:00 Heparin Sodium (Porcine) 5000 units 5,000 units Q8HR SQ 04/01/17 06:00 04/05/17 14:38 (NS 1000 ml Inj) 1,000 ml @ 100 mls/hr Q10H IV 04/01/17 01:15 04/05/17 18:08 (Protonix) 40 mg DAILY PO 04/01/17 09:00 04/05/17 11:15 (Flomax) 0.4 mg DAILY PO 04/01/17 13:00 04/02/17 08:43 (Lipitor) 40 mg HS PO 04/01/17 21:00 04/04/17 21:33 (Plavix) 75 mg DAILY PO 04/01/17 13:15 04/05/17 09:00 (Cymbalta Dr) 60 mg BID PO 04/01/17 13:15 04/04/17 21:33 (KCl) 10 meq DAILY PO 04/02/17 09:00 04/03/17 09:21 (Topamax) 100 mg BID PO 04/01/17 13:15 04/05/17 11:15 (Zofran Inj) 4 mg Q6HR PRN IV PUSH 04/01/17 13:15 04/05/17 00:05 (Remeron) 15 mg HS PO 04/01/17 21:00 04/04/17 21:33 (Percocet 5-325 Mg) 1 tab Q6H PRN PO 04/01/17 16:45 04/04/17 13:40 Labetalol HCl 400 mg 400 mg BID PO 04/02/17 21:00 04/05/17 08:56 (Rocephin Inj/NS Inj) 100 ml @ 200 mls/hr Q24H IV 04/02/17 15:00 04/05/17 14:39 (Norvasc) 10 mg DAILY PO 04/04/17 14:45 04/04/17 15:07 (Catapres) 0.1 mg Q6H PRN PO 04/04/17 14:45 04/04/17 21:34 (Catapres) 0.3 mg TID PO 04/05/17 13:00 04/05/17 18:08 (Keppra) 500 mg BID PO 04/05/17 21:00 Patient Own Medication PT OWN MED: VIIB... DAILY PO 04/06/17 09:00 Future Hold Assessment and Plan Assessment and Plan 41 yo female with kidney stones, JANELL, mild bilateral hydronephrosis -Creatinine improving. Good UOP -Doubt obstruction. -No urological intervention required. Ok to d/c when cleared by other services. Tejas Farooq MD Apr 05, 2017 18:31
[2017-04-05] MEDS: levETIRAcetam 500 MG TAB PO SCH (23:12)
[2017-04-05] MEDS: ATORVASTATIN 40 MG TAB PO SCH (23:12)
[2017-04-05] MEDS: MIRTAZAPINE 15 MG TAB PO SCH (23:12)
[2017-04-06] VITALS (7 sets, daily range): BP systolic 140–190; BP diastolic 74–93; PULSE 66–96; RESP 17–24; TEMP 97.6–98.9; O2SAT 95–100
[2017-04-06] MEDS: CHLORHEXIDINE GLUCONATE 2 % 1 PACK (2 CLOTHS) TOP SCH ×2 (04:00→22:44)
[2017-04-06] MEDS: INSULIN ASPART SUPPLEMENTAL SCALE SQ SCH ×4 (06:51→21:00)
[2017-04-06] MEDS: HEPARIN SODIUM - SQ 10,000 UNITS/ML VIAL SQ SCH ×3 (06:51→22:39)
[2017-04-06] MEDS ORDERED: PT OWN MED: VIIBRYD 40MG PO DAILY PO SCH (09:00)
[2017-04-06] MEDS: SODIUM CHLORIDE 0.9% FLUSH 10 ML FLUSH IV FLUSH SCH ×2 (09:00→21:00)
--- NOTE | 2017-04-06 10:44 | HHI.PR ---
Subjective Remarks Follow-up for infection Patient stated that she feels a little better. She has no complaints. She denies any pain. She has good urine output. Objective Vitals Vital Signs Date Time Temp Pulse Resp B/P Pulse Ox O2 Delivery O2 Flow Rate FiO2 04/06/17 08:00 98.3 66 24 180/74 95 04/06/17 04:34 98.5 80 17 143/93 97 04/06/17 00:19 98.9 84 20 165/78 95 04/05/17 20:45 99.1 71 20 135/68 96 04/05/17 16:00 99.5 82 18 178/85 98 04/05/17 12:00 98.7 98 19 167/81 98 I/O 04/05/17 04/05/17 04/05/17 04/06/17 04/06/17 04/06/17 07:00 15:00 23:00 07:00 15:00 23:00 Intake Total 626 ml 1040 ml 360 ml 360 ml Output Total 400 ml Balance 626 ml 1040 ml -40 ml 360 ml Intake Oral 240 ml 360 ml 360 ml IV Total 626 ml 800 ml Output Urine Total 400 ml # Voids 3 4 # Bowel Movements 2 0 0 Result Diagram: 04/05/1746 04/05/1746 Objective Remarks GENERAL: in NAD CARDIOVASCULAR: Regular rate and rhythm without murmurs, gallops, or rubs. RESPIRATORY: Breath sounds equal bilaterally. No accessory muscle use. GASTROINTESTINAL: Abdomen soft, non-tender, nondistended. Medications and IVs Current Medications Cefepime HCl 2000 mg/Sodium Chloride 100 ml @ 200 mls/hr ONCE STAT IV Last administered on 03/31/17 21:51; Start 03/31/17 at 20:38; Stop 04/01/17 at 11:36 ; Status DC Sodium Chloride 1,000 ml @ 999 mls/hr Q1H1M IV Last administered on 03/31/17 21:21; Start 03/31/17 at 20:45; Stop 03/31/17 at 21:45; Status DC Sodium Chloride (NS 1000 ml Inj) 1,000 ml @ 999 mls/hr Q1H1M IV Last administered on 03/31/17 21:21; Start 03/31/17 at 20:45; Stop 03/31/17 at 21:45 ; Status DC Acetaminophen (Tylenol) 1,000 mg ONCE ONCE PO Last administered on 03/31/17 21:21; Start 03/31/17 at 20:45; Stop 03/31/17 at 20:46; Status DC Morphine Sulfate (Morphine Inj) 4 mg ONCE ONCE IV PUSH Last administered on 21:21; Start 03/31/17 at 20:45; Stop 03/31/17 at 20:46; Status DC Lorazepam 0.5 mg 0.5 mg ONCE ONCE IV PUSH Last administered on 03/31/17 21:21 ; Start 03/31/17 at 20:45; Stop 03/31/17 at 20:46; Status DC Sodium Chloride 1,000 ml @ 999 mls/hr Q1H1M IV Last administered on 03/31/17 22:30; Start 03/31/17 at 22:15; Stop 03/31/17 at 23:15; Status DC Sodium Chloride 1,000 ml @ 999 mls/hr Q1H1M IV Last administered on 03/31/17 22:30; Start 03/31/17 at 22:15; Stop 03/31/17 at 23:15; Status DC Vancomycin HCl 1500 mg/Sodium Chloride 515 ml @ 257.5 mls/ hr ONCE ONCE IV Last administered on 03/31/17 23:15; Start 03/31/17 at 22:15; Stop 04/01/17 at 00:15; Status DC Sodium Chloride (NS 500 ml Inj) 500 ml @ 500 mls/hr BOLUS ONCE IV Last administered on 03/31/17 23:18; Start 03/31/17 at 22:45; Stop 03/31/17 at 23:44 ; Status DC Sodium Chloride (NS Flush) 2 ml UNSCH PRN IV FLUSH FLUSH AFTER USING IV ACCESS ; Start 03/31/17 at 23:15 Sodium Chloride (NS Flush) 2 ml BID IV FLUSH Last administered on 04/05/17 08: 57; Start 04/01/17 at 09:00 Naloxone HCl 0.4 mg 0.4 mg UNSCH PRN IV SEE LABEL COMMENTS; Start 03/31/17 at 23:15 Pharmacy Profile Note 0 ml @ 0 mls/hr UNSCH OTHER ; Start 03/31/17 at 23:15; Stop 04/01/17 at 11:36; Status DC Cefepime HCl 2000 mg/Sodium Chloride 100 ml @ 200 mls/hr Q12H IV Last administered on 04/01/17 08:59; Start 04/01/17 at 09:00; Stop 04/01/17 at 11:36 ; Status DC Ciprofloxacin/ Dextrose 200 ml @ 200 mls/hr Q12H IV Last administered on 11:40; Start 04/01/17 at 00:00; Stop 04/02/17 at 12:41; Status DC Vancomycin HCl/ Sodium Chloride (Vancomycin Inj/ NS 250 ml Inj) 250 ml @ 250 mls/hr ONCE ONCE IV Last administered on 04/01/17 02:38; Start 04/01/17 at 01 :00; Stop 04/01/17 at 01:59; Status DC Miscellaneous Information 1 Q361D XX ; Start 04/01/17 at 01:00 Chlorhexidine Gluconate (Chlorhexidine 2% Cloth) Taper DAILY@04 TOP Last administered on 04/01/17 22:02; Start 04/01/17 at 04:00; Stop 03/28/18 at 03:59 Chlorhexidine Gluconate (Chlorhexidine 2% Cloth) 3 pack UNSCH PRN TOP HYGIENIC CARE; Start 04/01/17 at 01:00 Dextrose (D50w (Vial) Inj) 50 ml UNSCH PRN IV HYPOGLYCEMIA-SEE COMMENTS; Start 04/01/17 at 01:00 Glucagon (Glucagon Inj) 1 mg UNSCH PRN OTHER HYPOGLYCEMIA-SEE COMMENTS; Start 04/01/17 at 01:00 Insulin Aspart (NovoLOG SUPPLEMENTAL SCALE) 1 ACHS SLIDING SCALE SQ Last administered on 04/05/17 23:35; Start 04/01/17 at 07:00 Heparin Sodium (Porcine) 5000 units 5,000 units Q8HR SQ Last administered on 06:51; Start 04/01/17 at 06:00 Sodium Chloride (NS 1000 ml Inj) 1,000 ml @ 100 mls/hr Q10H IV Last administered on 04/05/17 18:08; Start 04/01/17 at 01:15 Potassium Bicarb/ Potassium Chloride (K-Lyte Cl Eff) 50 meq ONCE ONCE PO Last administered on 7/14/17at 01:37; Start 04/01/17 at 01:15; Stop 04/01/17 at 01:16; Status DC Pantoprazole Sodium 40 mg 40 mg DAILY PO Last administered on 04/05/17 11:15; Start 04/01/17 at 09:00 Vancomycin HCl/ Sodium Chloride (Vancomycin Inj/ NS 500 ml Inj) 515 ml @ 257.5 mls/ hr Q12H IV ; Start 04/01/17 at 14:00; Stop 04/01/17 at 14:00; Status DC Miscellaneous Information SPECIFIC LAB TO BE RANULFO... ONCE ONCE .XX ; Start 04/03 at 01:45; Stop 04/03/17 at 01:45; Status DC Tamsulosin HCl 0.4 mg 0.4 mg DAILY PO Last administered on 04/02/17 08:43; Start 04/01/17 at 13:00 Cefepime HCl/ Sodium Chloride (Maxipime Inj/NS Inj) 100 ml @ 200 mls/hr Q12HR IV Last administered on 04/02/17 08:42; Start 04/01/17 at 21:00; Stop at 12:40; Status DC Atorvastatin Calcium (Lipitor) 40 mg HS PO Last administered on 04/05/17 23:12 ; Start 04/01/17 at 21:00 Clopidogrel Bisulfate (Plavix) 75 mg DAILY PO Last administered on 04/05/17 09 :00; Start 04/01/17 at 13:15 Duloxetine HCl (Cymbalta Dr) 60 mg BID PO Last administered on 04/05/17 23:12 ; Start 04/01/17 at 13:15 Labetalol HCl (Trandate) 200 mg BID PO Last administered on 04/02/17 08:43; Start 04/01/17 at 13:15; Stop 04/02/17 at 10:34; Status DC Potassium Chloride (KCl) 10 meq DAILY PO Last administered on 04/03/17 09:21; Start 04/02/17 at 09:00 Topiramate (Topamax) 100 mg BID PO Last administered on 04/05/17 23:12; Start 04/01/17 at 13:15 Ondansetron HCl (Zofran Inj) 4 mg Q6HR PRN IV PUSH n/v Last administered on 00:05; Start 04/01/17 at 13:15 Mirtazapine (Remeron) 15 mg HS PO Last administered on 04/05/17 23:12; Start 04/01/17 at 21:00 Oxycodone/ Acetaminophen (Percocet 5-325 Mg) 1 tab Q6H PRN PO pain 3-10 Last administered on 04/04/17 13:40; Start 04/01/17 at 16:45 Metoprolol Tartrate (Lopressor Inj) 5 mg ONCE ONCE IV PUSH Last administered on 04/02/17 01:41; Start 04/02/17 at 01:30; Stop 04/02/17 at 01:36; Status DC Nifedipine (Procardia Xl) 30 mg ONCE ONCE PO Last administered on 04/02/17 03 :07; Start 04/02/17 at 03:00; Stop 04/02/17 at 03:01; Status DC Metoprolol Tartrate (Lopressor Inj) 5 mg ONCE ONCE IV PUSH Last administered on 04/02/17 03:07; Start 04/02/17 at 03:00; Stop 04/02/17 at 03:01; Status DC Hydralazine HCl (Apresoline Inj) 10 mg ONCE ONCE IV PUSH Last administered on 04/02/17 05:01; Start 04/02/17 at 04:45; Stop 04/02/17 at 04:47; Status DC Metoprolol Tartrate (Lopressor Inj) 5 mg ONCE ONCE IV PUSH Last administered on 04/02/17 05:01; Start 04/02/17 at 04:45; Stop 04/02/17 at 04:47; Status DC Labetalol HCl (Trandate) 400 mg BID PO Last administered on 04/05/17 23:13; Start 04/02/17 at 21:00 Labetalol HCl 200 mg 200 mg ONCE ONCE PO ; Start 04/02/17 at 10:45; Stop at 10:46; Status DC Ceftriaxone Sodium/Sodium Chloride (Rocephin Inj/NS Inj) 100 ml @ 200 mls/hr Q24H IV Last administered on 04/05/17 14:39; Start 04/02/17 at 15:00 Albuterol/ Ipratropium (Duoneb Neb) 1 ampule Q4HR NEB PRN NEB sob; Start at 15:45 Potassium Chloride (KCl) 30 meq ONCE ONCE PO ; Start 04/04/17 at 10:00; Stop at 10:01; Status DC Potassium Bicarb/ Potassium Chloride (K-Lyte Cl Eff) 25 meq ONCE ONCE PO Last administered on 04/04/17 15:08; Start 04/04/17 at 14:45; Stop 04/04/17 at 15:01; Status DC Amlodipine Besylate (Norvasc) 10 mg DAILY PO Last administered on 04/04/17 15: 07; Start 04/04/17 at 14:45 Clonidine (Catapres) 0.1 mg Q6H PRN PO SBP>180 or DBP >100 Last administered on 04/04/17 21:34; Start 04/04/17 at 14:45 Clonidine (Catapres) 0.1 mg ONCE ONCE PO Last administered on 04/05/17 02:40 ; Start 04/05/17 at 02:00; Stop 04/05/17 at 02:01; Status DC Hydralazine HCl (Apresoline) 50 mg Q8H PO ; Start 04/05/17 at 10:00; Stop at 10:17; Status DC Clonidine (Catapres) 0.3 mg TID PO Last administered on 04/05/17 18:08; Start 04/05/17 at 13:00 Levetriacetam (Keppra) 500 mg BID PO Last administered on 04/05/17 23:12; Start 04/05/17 at 21:00 Patient Own Medication PT OWN MED: VIIB... DAILY PO ; Start 04/06/17 at 09:00; Status Hold Potassium Bicarb/ Potassium Chloride 50 meq 50 meq ONCE ONCE PO Last administered on 04/05/17 11:15; Start 04/05/17 at 11:00; Stop 04/05/17 at 11:01 ; Status DC Magnesium Sulfate/ Dextrose (Magnesium Sulfate 1 Gm Premix) 100 ml @ 100 mls/ hr Q1H IV ; Start 04/06/17 at 10:15; Stop 04/06/17 at 12:14 A/P Problem List: (1) HTN (hypertension) ICD Code: I10 Status: Chronic (2) DM (diabetes mellitus) ICD Code: E11.9 Status: Chronic (3) Sepsis ICD Code: A41.9 Status: Acute (4) Pyelonephritis ICD Code: N12 Status: Acute (5) Bacteremia ICD Code: R78.81 Status: Acute Assessment and Plan Severe sepsis secondary to pyelonephritis and bacteremia -Urine culture grew Escherichia coli, blood culture also grew Escherichia coli. Sensitive to ceftriaxone, stop ciprofloxacin due to increasing creatinine. Continue ceftriaxone for now. Hypotension is better. CT scan showed perinephric standing. There is also ureteral stone, urology saw the patient, ultrasound showed slight hydronephrosis bilaterally, might need cystoscopy. Repeat blood culture negative to date. -Being managed by infectious disease. Nausea/vomiting/diarrhea resolved. CT scan of the abdomen revealed hydronephrosis and hydroureter with left distal ureteral stone with perinephric stranding. Urologist determined patient may need a stent. Zofran as needed. Fibroids-CT scan showed fibroids, follow-up as outpatient Acute renal failure-improving with hydration. Continue monitor. Pending labs from today. Hypokalemia/hypomagnesemia-replenish as needed. Depression-consulted psychiatry, resume Cymbalta, hold off Klonopin for now and methylphenidate. RN added, psychiatry saw the patient. History of CVA- continue statin and Plavix. Patient has bilateral weakness secondary to multiple CVA. PT consulted. Once patient is medically stable she will most likely go back to the custodial. Poor oral intake-could be secondary to depression. On Remeron. Hypertension-medication list was updated today. Continue with labetalol and amlodipine. Will resume clonidine. Diabetes-sliding scale insulin for now, hold off long-acting insulin since patient is not eating. seizures-continue Topamax DVT prophylaxison heparin. GI prophylaxison pantoprazole. Discharge Planning Pending labs from today but patient continues have a leukocytosis so will require continue hospitalization per management from infectious disease. Camelia Hernandez MD Apr 06, 2017 10:44
[2017-04-06] MEDS: PANTOPRAZOLE SOD 40 MG DELAYED RELEASE TAB PO SCH (11:12)
[2017-04-06] MEDS: levETIRAcetam 500 MG TAB PO SCH ×2 (11:12→22:40)
[2017-04-06] MEDS: POTASSIUM CHLORIDE 10 MEQ CAP PO SCH (11:12)
[2017-04-06] MEDS: cloNIDine HCL 0.3 MG TAB PO SCH ×3 (11:12→17:08)
[2017-04-06] MEDS: LABETALOL HCL 200 MG TAB PO SCH ×2 (11:13→22:40)
[2017-04-06] MEDS: TAMSULOSIN HCL 0.4 MG CAP PO SCH (11:13)
[2017-04-06] MEDS: DULoxetine HCl DR 60 MG CAP PO SCH ×2 (11:13→22:40)
[2017-04-06] MEDS: CLOPIDOGREL 75 MG TAB PO SCH (11:13)
[2017-04-06] MEDS: TOPIRAMATE 100 MG TAB PO SCH ×2 (11:13→22:40)
[2017-04-06] MEDS: MAGNESIUM SULFATE 1 GM PREMIX 100 ML IV SCH ×2 (11:22→13:15)
[2017-04-06] MEDS: oxyCODONE/ACETAMINOPHEN 5 MG/325 MG TAB PO PRN (11:23)
[2017-04-06] MEDS: SODIUM CHLOR 0.9% 1000 ML INJ 1,000 ML IV SCH ×3 (13:10→22:47)
[2017-04-06] MEDS: cefTRIAXone INJ 1,000 MG in SODIUM CHLORIDE 0.9% INJ 100 ML IV SCH (17:06)
[2017-04-06] MEDS: cloNIDine HCL 0.1 MG TAB PO PRN (17:08)
[2017-04-06] MEDS: ATORVASTATIN 40 MG TAB PO SCH (22:40)
[2017-04-06] MEDS: MIRTAZAPINE 15 MG TAB PO SCH (22:40)
[2017-04-07 00:02] VITALS: BP 143/79; PULSE 78; RESP 18; TEMP 97.4; O2SAT 96
[2017-04-07 04:36] VITALS: BP 184/89; PULSE 78; RESP 18; TEMP 96.9; O2SAT 97
[2017-04-07] MEDS: HEPARIN SODIUM - SQ 10,000 UNITS/ML VIAL SQ SCH ×3 (06:20→22:58)
[2017-04-07] MEDS: INSULIN ASPART SUPPLEMENTAL SCALE SQ SCH ×4 (06:21→21:00)
[2017-04-07] MEDS: cloNIDine HCL 0.1 MG TAB PO PRN (06:21)
[2017-04-07 08:00] VITALS: BP 200/92; PULSE 64; RESP 18; TEMP 97.4; O2SAT 100
[2017-04-07] MEDS: LABETALOL HCL 200 MG TAB PO SCH ×2 (08:09→22:57)
[2017-04-07] MEDS: CLOPIDOGREL 75 MG TAB PO SCH (08:09)
[2017-04-07] MEDS: POTASSIUM CHLORIDE 10 MEQ CAP PO SCH (08:09)
[2017-04-07] MEDS: DULoxetine HCl DR 60 MG CAP PO SCH ×2 (08:09→22:58)
[2017-04-07] MEDS: TAMSULOSIN HCL 0.4 MG CAP PO SCH (08:10)
[2017-04-07] MEDS: PANTOPRAZOLE SOD 40 MG DELAYED RELEASE TAB PO SCH (08:10)
[2017-04-07] MEDS: levETIRAcetam 500 MG TAB PO SCH ×2 (08:10→22:57)
[2017-04-07] MEDS: TOPIRAMATE 100 MG TAB PO SCH ×2 (08:10→22:57)
[2017-04-07] MEDS: SODIUM CHLOR 0.9% 1000 ML INJ 1,000 ML IV SCH ×2 (08:10→17:15)
[2017-04-07] MEDS: SODIUM CHLORIDE 0.9% FLUSH 10 ML FLUSH IV FLUSH SCH ×2 (08:10→21:00)
[2017-04-07] MEDS: cloNIDine HCL 0.3 MG TAB PO SCH ×3 (08:10→17:00)
[2017-04-07] MEDS: hydrALAZINE HCL 50 MG TAB PO SCH ×2 (11:14→17:00)
--- NOTE | 2017-04-07 11:25 | HHI.PR ---
Subjective Remarks Follow-up for infection Patient has been refusing her blood drawn. I explained to patient extensively the necessity of getting lab work done due to her low potassium/magnesium and infection. Patient stated that she would allow lab to draw blood. Dealt with patient's nurse Su in regards to this. Otherwise she has no complaints. She stated that she's feeling well. She denies any pain, shortness of breathing, chest pain, lightheadedness or dizziness. She remains afebrile. Objective Vitals Vital Signs Date Time Temp Pulse Resp B/P Pulse Ox O2 Delivery O2 Flow Rate FiO2 04/07/17 08:00 97.4 64 18 200/92 100 04/07/17 04:36 96.9 78 18 184/89 97 04/07/17 00:02 97.4 78 18 143/79 96 04/06/17 20:13 97.6 81 20 140/81 97 04/06/17 20:00 82 04/06/17 16:00 98.4 74 18 184/88 99 04/06/17 12:00 98.6 96 22 190/82 100 I/O 04/06/17 04/06/17 04/06/17 04/07/17 04/07/17 04/07/17 07:00 15:00 23:00 07:00 15:00 23:00 Intake Total 360 ml 480 ml 3137 ml 280 ml Balance 360 ml 480 ml 3137 ml 280 ml Intake Oral 360 ml 480 ml 480 ml 280 ml IV Total 2657 ml # Voids 4 3 3 3 # Bowel Movements 0 0 0 Result Diagram: 04/05/17 0846 04/05/17 0846 Imaging Last Impressions Abdomen X-Ray 04/02/17 0600 Signed Impressions: Service Date/Time: Sunday, April 02, 2017 03:28 - CONCLUSION: No acute disease. Renal calculi are not clearly visualized. Mickey Harris MD Renal Ultrasound 04/02/17 0000 Signed Impressions: Service Date/Time: Sunday, April 02, 2017 14:37 - CONCLUSION: Slight hydronephrosis in both kidneys. Irene Nguyen MD Chest X-Ray 03/31/172037 Signed Impressions: Service Date/Time: March 21:19 - CONCLUSION: No acute cardiopulmonary disease. Irene Nguyen MD Abdomen/Pelvis CT 03/31/17 0000 Signed Impressions: Service Date/Time: March 23:48 - CONCLUSION: 1. Mild hydronephrosis and hydroureter bilaterally with a left distal ureteral stone present. There is mild perinephric stranding. 2. Prominent globular configuration of the uterus with multiple calcifications consistent with a fibroid uterus. Mickey Harris MD Objective Remarks GENERAL: in NAD CARDIOVASCULAR: Regular rate and rhythm without murmurs, gallops, or rubs. RESPIRATORY: Breath sounds equal bilaterally. No accessory muscle use. GASTROINTESTINAL: Abdomen soft, non-tender, nondistended. Medications and IVs Current Medications Cefepime HCl 2000 mg/Sodium Chloride 100 ml @ 200 mls/hr ONCE STAT IV Last administered on 03/31/17 21:51; Start 03/31/17 at 20:38; Stop 04/01/17 at 11:36 ; Status DC Sodium Chloride 1,000 ml @ 999 mls/hr Q1H1M IV Last administered on 03/31/17 21:21; Start 03/31/17 at 20:45; Stop 03/31/17 at 21:45; Status DC Sodium Chloride (NS 1000 ml Inj) 1,000 ml @ 999 mls/hr Q1H1M IV Last administered on 03/31/17 21:21; Start 03/31/17 at 20:45; Stop 03/31/17 at 21:45 ; Status DC Acetaminophen (Tylenol) 1,000 mg ONCE ONCE PO Last administered on 03/31/17 21:21; Start 03/31/17 at 20:45; Stop 03/31/17 at 20:46; Status DC Morphine Sulfate (Morphine Inj) 4 mg ONCE ONCE IV PUSH Last administered on 21:21; Start 03/31/17 at 20:45; Stop 03/31/17 at 20:46; Status DC Lorazepam 0.5 mg 0.5 mg ONCE ONCE IV PUSH Last administered on 03/31/17 21:21 ; Start 03/31/17 at 20:45; Stop 03/31/17 at 20:46; Status DC Sodium Chloride 1,000 ml @ 999 mls/hr Q1H1M IV Last administered on 03/31/17 22:30; Start 03/31/17 at 22:15; Stop 03/31/17 at 23:15; Status DC Sodium Chloride 1,000 ml @ 999 mls/hr Q1H1M IV Last administered on 03/31/17 22:30; Start 03/31/17 at 22:15; Stop 03/31/17 at 23:15; Status DC Vancomycin HCl 1500 mg/Sodium Chloride 515 ml @ 257.5 mls/ hr ONCE ONCE IV Last administered on 03/31/17 23:15; Start 03/31/17 at 22:15; Stop 04/01/17 at 00:15; Status DC Sodium Chloride (NS 500 ml Inj) 500 ml @ 500 mls/hr BOLUS ONCE IV Last administered on 03/31/17 23:18; Start 03/31/17 at 22:45; Stop 03/31/17 at 23:44 ; Status DC Sodium Chloride (NS Flush) 2 ml UNSCH PRN IV FLUSH FLUSH AFTER USING IV ACCESS ; Start 03/31/17 at 23:15 Sodium Chloride (NS Flush) 2 ml BID IV FLUSH Last administered on 04/05/17 08: 57; Start 04/01/17 at 09:00 Naloxone HCl 0.4 mg 0.4 mg UNSCH PRN IV SEE LABEL COMMENTS; Start 03/31/17 at 23:15 Pharmacy Profile Note 0 ml @ 0 mls/hr UNSCH OTHER ; Start 03/31/17 at 23:15; Stop 04/01/17 at 11:36; Status DC Cefepime HCl 2000 mg/Sodium Chloride 100 ml @ 200 mls/hr Q12H IV Last administered on 04/01/17 08:59; Start 04/01/17 at 09:00; Stop 04/01/17 at 11:36 ; Status DC Ciprofloxacin/ Dextrose 200 ml @ 200 mls/hr Q12H IV Last administered on 11:40; Start 04/01/17 at 00:00; Stop 04/02/17 at 12:41; Status DC Vancomycin HCl/ Sodium Chloride (Vancomycin Inj/ NS 250 ml Inj) 250 ml @ 250 mls/hr ONCE ONCE IV Last administered on 04/01/17 02:38; Start 04/01/17 at 01 :00; Stop 04/01/17 at 01:59; Status DC Miscellaneous Information 1 Q361D XX ; Start 04/01/17 at 01:00 Chlorhexidine Gluconate (Chlorhexidine 2% Cloth) Taper DAILY@04 TOP Last administered on 04/01/17 22:02; Start 04/01/17 at 04:00; Stop 03/28/18 at 03:59 Chlorhexidine Gluconate (Chlorhexidine 2% Cloth) 3 pack UNSCH PRN TOP HYGIENIC CARE; Start 04/01/17 at 01:00 Dextrose (D50w (Vial) Inj) 50 ml UNSCH PRN IV HYPOGLYCEMIA-SEE COMMENTS; Start 04/01/17 at 01:00 Glucagon (Glucagon Inj) 1 mg UNSCH PRN OTHER HYPOGLYCEMIA-SEE COMMENTS; Start 04/01/17 at 01:00 Insulin Aspart (NovoLOG SUPPLEMENTAL SCALE) 1 ACHS SLIDING SCALE SQ Last administered on 04/06/17 17:07; Start 04/01/17 at 07:00 Heparin Sodium (Porcine) 5000 units 5,000 units Q8HR SQ Last administered on 06:20; Start 04/01/17 at 06:00 Sodium Chloride (NS 1000 ml Inj) 1,000 ml @ 100 mls/hr Q10H IV Last administered on 04/07/17 08:10; Start 04/01/17 at 01:15 Potassium Bicarb/ Potassium Chloride (K-Lyte Cl Eff) 50 meq ONCE ONCE PO Last administered on 04/01/17 01:37; Start 04/01/17 at 01:15; Stop 04/01/17 at 01:16; Status DC Pantoprazole Sodium 40 mg 40 mg DAILY PO Last administered on 04/07/17 08:10; Start 04/01/17 at 09:00 Vancomycin HCl/ Sodium Chloride (Vancomycin Inj/ NS 500 ml Inj) 515 ml @ 257.5 mls/ hr Q12H IV ; Start 04/01/17 at 14:00; Stop 04/01/17 at 14:00; Status DC Miscellaneous Information SPECIFIC LAB TO BE RANULFO... ONCE ONCE .XX ; Start 04/03 at 01:45; Stop 04/03/17 at 01:45; Status DC Tamsulosin HCl 0.4 mg 0.4 mg DAILY PO Last administered on 04/07/17 08:10; Start 04/01/17 at 13:00 Cefepime HCl/ Sodium Chloride (Maxipime Inj/NS Inj) 100 ml @ 200 mls/hr Q12HR IV Last administered on 04/02/17 08:42; Start 04/01/17 at 21:00; Stop at 12:40; Status DC Atorvastatin Calcium (Lipitor) 40 mg HS PO Last administered on 04/06/17 22:40 ; Start 04/01/17 at 21:00 Clopidogrel Bisulfate (Plavix) 75 mg DAILY PO Last administered on 04/07/17 08 :09; Start 04/01/17 at 13:15 Duloxetine HCl (Cymbalta Dr) 60 mg BID PO Last administered on 04/07/17 08:09 ; Start 04/01/17 at 13:15 Labetalol HCl (Trandate) 200 mg BID PO Last administered on 04/02/17 08:43; Start 04/01/17 at 13:15; Stop 04/02/17 at 10:34; Status DC Potassium Chloride (KCl) 10 meq DAILY PO Last administered on 04/07/17 08:09; Start 04/02/17 at 09:00 Topiramate (Topamax) 100 mg BID PO Last administered on 04/07/17 08:10; Start 04/01/17 at 13:15 Ondansetron HCl (Zofran Inj) 4 mg Q6HR PRN IV PUSH n/v Last administered on 00:05; Start 04/01/17 at 13:15 Mirtazapine (Remeron) 15 mg HS PO Last administered on 04/06/17 22:40; Start 04/01/17 at 21:00 Oxycodone/ Acetaminophen (Percocet 5-325 Mg) 1 tab Q6H PRN PO pain 3-10 Last administered on 04/06/17 11:23; Start 04/01/17 at 16:45 Metoprolol Tartrate (Lopressor Inj) 5 mg ONCE ONCE IV PUSH Last administered on 04/02/17 01:41; Start 04/02/17 at 01:30; Stop 04/02/17 at 01:36; Status DC Nifedipine (Procardia Xl) 30 mg ONCE ONCE PO Last administered on 04/02/17 03 :07; Start 04/02/17 at 03:00; Stop 04/02/17 at 03:01; Status DC Metoprolol Tartrate (Lopressor Inj) 5 mg ONCE ONCE IV PUSH Last administered on 04/02/17 03:07; Start 04/02/17 at 03:00; Stop 04/02/17 at 03:01; Status DC Hydralazine HCl (Apresoline Inj) 10 mg ONCE ONCE IV PUSH Last administered on 04/02/17 05:01; Start 04/02/17 at 04:45; Stop 04/02/17 at 04:47; Status DC Metoprolol Tartrate (Lopressor Inj) 5 mg ONCE ONCE IV PUSH Last administered on 04/02/17 05:01; Start 04/02/17 at 04:45; Stop 04/02/17 at 04:47; Status DC Labetalol HCl (Trandate) 400 mg BID PO Last administered on 04/07/17 08:09; Start 04/02/17 at 21:00 Labetalol HCl 200 mg 200 mg ONCE ONCE PO ; Start 04/02/17 at 10:45; Stop at 10:46; Status DC Ceftriaxone Sodium/Sodium Chloride (Rocephin Inj/NS Inj) 100 ml @ 200 mls/hr Q24H IV Last administered on 04/06/17 17:06; Start 04/02/17 at 15:00 Albuterol/ Ipratropium (Duoneb Neb) 1 ampule Q4HR NEB PRN NEB sob; Start at 15:45 Potassium Chloride (KCl) 30 meq ONCE ONCE PO ; Start 04/04/17 at 10:00; Stop at 10:01; Status DC Potassium Bicarb/ Potassium Chloride (K-Lyte Cl Eff) 25 meq ONCE ONCE PO Last administered on 04/04/17 15:08; Start 04/04/17 at 14:45; Stop 04/04/17 at 15:01; Status DC Amlodipine Besylate (Norvasc) 10 mg DAILY PO Last administered on 04/07/17 08: 10; Start 04/04/17 at 14:45 Clonidine (Catapres) 0.1 mg Q6H PRN PO SBP>180 or DBP >100 Last administered on 04/07/17 06:21; Start 04/04/17 at 14:45 Clonidine (Catapres) 0.1 mg ONCE ONCE PO Last administered on 04/05/17 02:40 ; Start 04/05/17 at 02:00; Stop 04/05/17 at 02:01; Status DC Hydralazine HCl (Apresoline) 50 mg Q8H PO ; Start 04/05/17 at 10:00; Stop at 10:17; Status DC Clonidine (Catapres) 0.3 mg TID PO Last administered on 04/07/17 11:14; Start 04/05/17 at 13:00 Levetriacetam (Keppra) 500 mg BID PO Last administered on 04/07/17 08:10; Start 04/05/17 at 21:00 Patient Own Medication PT OWN MED: VIIB... DAILY PO ; Start 04/06/17 at 09:00; Status Hold Potassium Bicarb/ Potassium Chloride 50 meq 50 meq ONCE ONCE PO Last administered on 04/05/17 11:15; Start 04/05/17 at 11:00; Stop 04/05/17 at 11:01 ; Status DC Magnesium Sulfate/ Dextrose (Magnesium Sulfate 1 Gm Premix) 100 ml @ 100 mls/ hr Q1H IV Last administered on 04/06/17 13:15; Start 04/06/17 at 10:15; Stop 04/06/17 at 12:14; Status DC Hydralazine HCl (Apresoline) 50 mg Q8H PO Last administered on 04/07/17 11:14 ; Start 04/07/17 at 10:00 A/P Problem List: (1) HTN (hypertension) ICD Code: I10 Status: Chronic (2) DM (diabetes mellitus) ICD Code: E11.9 Status: Chronic (3) Sepsis ICD Code: A41.9 Status: Acute (4) Pyelonephritis ICD Code: N12 Status: Acute (5) Bacteremia ICD Code: R78.81 Status: Acute Assessment and Plan Severe sepsis secondary to pyelonephritis and bacteremia -Urine culture grew Escherichia coli, blood culture also grew Escherichia coli. Sensitive to ceftriaxone, stop ciprofloxacin due to increasing creatinine. Continue ceftriaxone for now. Hypotension is better. CT scan showed perinephric standing. There is also ureteral stone, urology saw the patient, ultrasound showed slight hydronephrosis bilaterally, might need cystoscopy. Repeat blood culture negative to date. -Being managed by infectious disease. Nausea/vomiting/diarrhea resolved. CT scan of the abdomen revealed hydronephrosis and hydroureter with left distal ureteral stone with perinephric stranding. Her urologist knows that needed. Zofran as needed. Fibroids-CT scan showed fibroids, follow-up as outpatient Acute renal failure-improving with hydration. Continue monitor. Improving. Patient has been declining lab since yesterday. Patient stated that she will allow blood bank laboratory technologist to draw blood today. Pending results. Hypokalemia/hypomagnesemia-replenish as needed. Depression-consulted psychiatry, resume Cymbalta, hold off Klonopin for now and methylphenidate. RN added, psychiatry saw the patient. History of CVA- continue statin and Plavix. Patient has bilateral weakness secondary to multiple CVA. PT consulted. Once patient is medically stable she will most likely go back to the [facility]. Poor oral intake-could be secondary to depression. On Remeron. Hypertension-medication list was updated today. Continue with labetalol and amlodipine and clonidine. Patient blood pressure continues to be uncontrolled will add hydralazine. Diabetes-sliding scale insulin for now, hold off long-acting insulin since patient is not eating. seizures-continue Topamax DVT prophylaxison heparin. GI prophylaxison pantoprazole. Discharge Planning Patient has been refusing lab since yesterday. Dealt with patient extensively on the importance of getting labs in order to treat her medically. Patient agreed so we'll need to follow-up with labs from today. Camelia Hernandez MD Apr 07, 2017 11:25
[2017-04-07 12:00] VITALS: BP 168/77; PULSE 85; RESP 18; TEMP 96.3; O2SAT 100
[2017-04-07] MEDS: cefTRIAXone INJ 1,000 MG in SODIUM CHLORIDE 0.9% INJ 100 ML IV SCH (15:02)
[2017-04-07 16:00] VITALS: BP 168/77; PULSE 76; RESP 18; TEMP 97; O2SAT 100
[2017-04-07 16:17] LABS: BICARBONATE 23.4 MEQ/L (21.0-32.0); MAGNESIUM 1.1 MG/DL (1.5-2.5)
[2017-04-07 16:29] LABS: POTASSIUM 2.9 MEQ/L (3.5-5.1)
[2017-04-07] MEDS ORDERED: POTASSIUM CHLORIDE 25 MEQ EFFERVESCENT TAB PO ONE (16:45)
[2017-04-07] MEDS: MAGNESIUM SULFATE 1 GM PREMIX 100 ML IV SCH ×2 (17:01→18:46)
[2017-04-07 17:03] LABS: CALCIUM-PROTEIN CORRECTED 7.2 MG/DL (8.5-10.1)
--- NOTE | 2017-04-07 18:43 | HHI.PR ---
Addendum to Inpatient Note Additional Information repeat clx no growth weaver S E.coli switch to Levaquine po Negrita Wayne MD Apr 07, 2017 18:43
[2017-04-07 20:00] VITALS: BP 142/79; PULSE 81; RESP 22; TEMP 96.5; O2SAT 98
[2017-04-07] MEDS: MIRTAZAPINE 15 MG TAB PO SCH (22:57)
[2017-04-07] MEDS: ATORVASTATIN 40 MG TAB PO SCH (22:58)
[2017-04-07] MEDS: POTASSIUM CHLORIDE 25 MEQ EFFERVESCENT TAB NG SCH (23:03)
[2017-04-07] MEDS: CALCIUM CARBONATE 1.25 GM (CA 500 MG) TAB PO SCH (23:03)
[2017-04-07] MEDS: MAGNESIUM OXIDE 400 MG TAB PO SCH (23:03)
[2017-04-08] VITALS: BP 150/79; PULSE 78; RESP 20; TEMP 96.8; O2SAT 98
[2017-04-08 04:00] VITALS: BP 139/87; PULSE 80; RESP 20; TEMP 97.4; O2SAT 93
[2017-04-08] MEDS: CHLORHEXIDINE GLUCONATE 2 % 1 PACK (2 CLOTHS) TOP SCH (04:00)
[2017-04-08] MEDS: INSULIN ASPART SUPPLEMENTAL SCALE SQ SCH (04:30)
[2017-04-08] MEDS: SODIUM CHLOR 0.9% 1000 ML INJ 1,000 ML IV SCH (05:25)
[2017-04-08] MEDS: hydrALAZINE HCL 50 MG TAB PO SCH ×2 (05:27→10:51)
[2017-04-08] MEDS: HEPARIN SODIUM - SQ 10,000 UNITS/ML VIAL SQ SCH (05:27)
[2017-04-08 06:01] LABS: HEMATOCRIT 30.4 % (35.0-46.0); MEAN CELL VOLUME 80.9 FL (80.0-100.0); MEAN CORPUSCULAR HEMOGLOBIN 25.4 PG (27.0-34.0); MEAN CORPUSCULAR HGB CONC 31.4 % (32.0-36.0); PLATELET COUNT 475 TH/MM3 (150-450); RED BLOOD COUNT 3.76 MIL/MM3 (4.00-5.30); RED CELL DISTRIBUTION WIDTH 17.1 % (11.6-17.2); REVIEW FLAG FINAL; WHITE BLOOD COUNT 22.5 TH/MM3 (4.0-11.0)
[2017-04-08 06:27] LABS: BICARBONATE 20.7 MEQ/L (21.0-32.0); POTASSIUM 3.2 MEQ/L (3.5-5.1)
[2017-04-08 08:00] VITALS: BP 158/83; PULSE 87; RESP 16; TEMP 97.7; O2SAT 98
[2017-04-08] MEDS ORDERED: LEVOFLOXACIN 750 MG TAB PO SCH (09:00)
[2017-04-08] MEDS ORDERED: PERC5TAB12 PO (09:24)
[2017-04-08] MEDS ORDERED: TAMS5CAP PO (09:24)
[2017-04-08] MEDS ORDERED: HYDR-3800 PO (09:24)
[2017-04-08] MEDS ORDERED: LEVA750T9 PO (09:24)
[2017-04-08] MEDS ORDERED: KLYTECL NG (09:24)
[2017-04-08] MEDS ORDERED: LABE200T2 PO (09:24)
[2017-04-08] MEDS ORDERED: MIRTA15 PO (09:24)
[2017-04-08] MEDS ORDERED: MAGN400T3 PO (09:24)
[2017-04-08] MEDS ORDERED: CALC500T30 PO (09:24)
[2017-04-08] MEDS ORDERED: MAGNESIUM SULFATE 1 GM PREMIX 100 ML IV ONE (10:00)
[2017-04-08] MEDS: CALCIUM CARBONATE 1.25 GM (CA 500 MG) TAB PO SCH (10:49)
[2017-04-08] MEDS: cloNIDine HCL 0.3 MG TAB PO SCH (10:49)
[2017-04-08] MEDS: TOPIRAMATE 100 MG TAB PO SCH (10:49)
[2017-04-08] MEDS: levETIRAcetam 500 MG TAB PO SCH (10:50)
[2017-04-08] MEDS: MAGNESIUM OXIDE 400 MG TAB PO SCH (10:50)
[2017-04-08] MEDS: LABETALOL HCL 200 MG TAB PO SCH (10:50)
[2017-04-08] MEDS: POTASSIUM CHLORIDE 10 MEQ CAP PO SCH (10:50)
[2017-04-08] MEDS: DULoxetine HCl DR 60 MG CAP PO SCH (10:51)
[2017-04-08] MEDS: PANTOPRAZOLE SOD 40 MG DELAYED RELEASE TAB PO SCH (10:51)
[2017-04-08] MEDS: TAMSULOSIN HCL 0.4 MG CAP PO SCH (10:51)
[2017-04-08] MEDS: POTASSIUM CHLORIDE 25 MEQ EFFERVESCENT TAB NG SCH (10:52)
[2017-04-08 12:00] VITALS: BP 156/82; PULSE 88; RESP 16; TEMP 98.3; O2SAT 100
--- NOTE | 2017-04-08 15:30 | HHI.DS ---
Discharge Summary Admission Date Mar 31, 2017 at 23:11 Admitting Diagnosis severe sepsis (1) HTN (hypertension) ICD Code: I10 (2) DM (diabetes mellitus) ICD Code: E11.9 (3) Sepsis ICD Code: A41.9 (4) Pyelonephritis ICD Code: N12 (5) Bacteremia ICD Code: R78.81 Brief History - From Admission History from patient, ER physician communication, and review of medical records , and [facility] notes. Patient reported that she was sent from the [facility] because she was not able to eat. She reports she was having trouble eating for the past 2 or 3 days because she was having loss of appetite. Also reports of associated nausea. Reports she vomited about once a day for the past 2-3 days. Denies any black color or red color vomit. Also reports of diffuse abdominal pain. States she was having diarrhea about once a day for the past 2-3 days as well. No black or red color diarrhea. Reports of urinary burning, pain on urination, frequent urination. She states she is bedbound at the [facility]. She however does not have a Perez catheter chronically according to her. She states that the catheter was placed today just to collect sample at the [facility]. She denies having had any bedsores as well. However we were unable to check her skin integrity in emergency room so far because of her body habitus and not able to roll her over on the bed. Patient denies being on any antibiotics recently. Her last hospitalization was in August 2016 at our facility. Stated she did not go to any other hospitals. Apart from the above, patient denies any recent chest pain/palpitations/ shortness of breath/focal weakness which is new. Denies any hematemesis/hematochezia/melena/hematuria. The emergency room, patient was noted to be quite hypotensive upon initial arrival. She was given 4 L total fluids for resuscitation. At present, her blood pressure is 126/70. Heart rate around 90. She was also given vancomycin, cefepime in ER CBC/BMP: 04/08/17 0539 04/08/17 0539 Significant Findings Laboratory Tests Test 04/07/17 04/08/17 15:32 05:39 Potassium Level 2.9 MEQ/L 3.2 MEQ/L (3.5-5.1) (3.5-5.1) Chloride Level 111 MEQ/L 112 MEQ/L (98-107) (98-107) Estimat Glomerular Filtration 74 ML/MIN (>89) 68 ML/MIN (>89) Rate Calcium Level 7.4 MG/DL 7.8 MG/DL (8.5-10.1) (8.5-10.1) Protein Corrected Calcium 7.2 MG/DL (8.5-10.1) Magnesium Level 1.1 MG/DL (1.5-2.5) White Blood Count 22.5 TH/MM3 (4.0-11.0) Red Blood Count 3.76 MIL/MM3 (4.00-5.30) Hemoglobin 9.5 GM/DL (11.6-15.3) Hematocrit 30.4 % (35.0-46.0) Mean Corpuscular Hemoglobin 25.4 PG (27.0-34.0) Mean Corpuscular Hemoglobin 31.4 % Concent (32.0-36.0) Platelet Count 475 TH/MM3 (150-450) Carbon Dioxide Level 20.7 MEQ/L (21.0-32.0) Creatinine 1.08 MG/DL (0.50-1.00) Random Glucose 143 MG/DL (74-106) PE at Discharge GENERAL: in NAD CARDIOVASCULAR: Regular rate and rhythm without murmurs, gallops, or rubs. RESPIRATORY: Breath sounds equal bilaterally. No accessory muscle use. GASTROINTESTINAL: Abdomen soft, non-tender, nondistended. Pt Condition on Discharge: Stable Discharge Disposition: Discharge to SNF Discharge Instructions DIET: Follow Instructions for: Heart Healthy Diet, Diabetic Diet Activities you can perform: Regular-No Restrictions Camelia Hernandez MD Apr 08, 2017 15:30
== END 2017-04-08 13:59 | DRG 872 ==
LOC: NEPC 20:28 → NEDA 23:11 → HIME 04-01 00:30 → N07B 04-02 13:47
PROVIDERS: ADMIT Family Medicine; ATTEND Family Medicine
DX: A41.51 Sepsis due to Escherichia coli [E. coli] (principal); N17.9 Acute kidney failure, unspecified; E66.01 Morbid (severe) obesity due to excess calories; E83.42 Hypomagnesemia; R13.10 Dysphagia, unspecified; N13.6 Pyonephrosis; I10 Essential (primary) hypertension; E11.9 Type 2 diabetes mellitus without complications; B96.20 Unspecified Escherichia coli [E. coli] as the cause of diseases classified elsewhere; G47.33 Obstructive sleep apnea (adult) (pediatric); R65.20 Severe sepsis without septic shock; E87.6 Hypokalemia; E78.00 Pure hypercholesterolemia, unspecified; F32.9 Major depressive disorder, single episode, unspecified; F41.9 Anxiety disorder, unspecified; G40.909 Epilepsy, unspecified, not intractable, without status epilepticus; Z86.73 Personal history of transient ischemic attack (TIA), and cerebral infarction without residual deficits; Z74.01 Bed confinement status
CPT/HCPCS: 71010; 74000; 74176; 76775; 80048; 80053; 81001; 82948; 83605; 83735; 84155; 85007; 85025; 85027; 87040; 87077; 87086; 87186; 87205; 87641; 96374; 96375; J0360; J0692; J0696; J0744; J1644; J1815; J2060; J2270; J2405; J3370; J3475; J7030; J7040; J7050